=== PATIENT | female | born 1990 | race Caucasian/White ===

== ENCOUNTER 2017-01-30 16:11 | Emergency (ER) | payer OTHER ==
[2017-01-30 16:23] VITALS: BP 165/81; PULSE 105; RESP 20; TEMP 98.9
[2017-01-30] MEDS ORDERED: HYDROcodone/APAP 5-325MG 1 EACH TAB PO STA (16:46)
--- NOTE | 2017-01-30 18:26 | ED ---
General Adult HPI - General Chief complaint: Skin/Abscess/Foreign Body Stated complaint: Cyst on Chest Source: patient, family, RN notes reviewed Mode of arrival: ambulatory Limitations: no limitations - History of Present Illness Initial comments: Chief complaint history of present illness a 18-year-old female here with a painful abscess. She been on Keflex for 2 days and Motrin for pain. Discomfort is becoming worse. She been using hot compresses without any improvement. - Related Data Home Medications Medication Instructions Recorded Confirmed Cephalexin [Keflex] 500 mg PO QID 01/30/17 01/30/17 Ibuprofen [Motrin] 600 mg PO TID PRN 01/30/17 01/30/17 Losartan [Cozaar] 50 mg PO DAILY 01/30/17 01/30/17 Marlissa-28 1 tab PO HS 01/30/17 01/30/17 Previous Rx's Medication Instructions Recorded Hydrocodone/Acetaminophen [[place] 1 each PO Q6HR PRN #30 tab 01/30/17 5-325] Allergies Allergy/AdvReac Type Severity Reaction Status Date / Time No Known Allergies Allergy Verified 01/30/17 16:52 Review of Systems ROS Statement: Those systems with pertinent positive or pertinent negative responses have been documented in the HPI. Review of systems all normal except for the painful abscess just to the right of midline just below the breast. All systems reviewed. Past medical problems no significant past medical problems history of surgeries none. Family history noncontributory. No known ALLERGIES. Nonsmoker nondrinker. ROS Other: All systems not noted in ROS Statement are negative. Past Medical History Past Medical History: No Reported History History of Any Multi-Drug Resistant Organisms: None Reported Past Surgical History: No Surgical Hx Reported Past Anesthesia/Blood Transfusion Reactions: No Reported Reaction Past Psychological History: No Psychological Hx Reported Smoking Status: Never smoker Past Alcohol Use History: None Reported Past Drug Use History: None Reported General Exam - General Exam Comments Initial Comments: General: The patient is awake and alert, complains of what appears to be an infected sebaceous cyst anterior chest wall just medial to the midline near the right breast. Vital signs temperature 90.9 pulse 105 respiratory rate 20 pulse ox 90 % room air blood pressure Respiratory: No respiratory distress no palpitations. Examination finds an area of erythema and induration. With a fluctuant center. Abscess to be drained. Patient reports she's had a pea-sized anterior there for many years. Limitations: no limitations Course Vital Signs 01/30/17 16:20 Temperature 98.9 F Pulse Rate 105 H Respiratory 20 Rate Blood Pressure 165/81 O2 Sat by Pulse 98 Oximetry Procedures - Procedures Initial comment: Using show technique the area over the abscess was cleaned well Betadine and alcohol. Eye was then anesthetized with 5 mL of lidocaine. The abscess was then entered with an 18-gauge needle 5 mL of pus was removed. Using a #11 blade stellate incision was made approximately 4 more cc of murky purulent material removed. This was then packed with 1/2 inch iodoform gauze 6 inches probably bandage applied on top. Dr. Pickard Medical Decision Making - Medical Decision Making Medical decision-making. Incision and drainage with culture will be obtained and performed. Patient will continue on her medications. Disposition Clinical Impression: Infected sebaceous cyst Disposition: HOME SELF-CARE Condition: Stable Instructions: Abscess Incision and Drainage (ED), Cyst (ED) Additional Instructions: Remove packing in 24 hours. Wash well and shower twice daily. Taking continue antibiotics as prescribed. Call for culture results in 3 days. Follow-up with family physician return emergency room as needed Prescriptions: Hydrocodone/Acetaminophen [[place] 5-325] 1 each PO Q6HR PRN #30 tab PRN Reason: Pain Referrals: Charlie De Santiago DO [Primary Care Provider] - 1-2 days Time of Disposition: 18:26
== END 2017-01-30 18:47 | disposition home or self-care (01) ==
LOC: EC 16:11
DX: L72.3 Sebaceous cyst (principal); H44.009 Unspecified purulent endophthalmitis, unspecified eye; Z79.3 Long term (current) use of hormonal contraceptives; Z79.899 Other long term (current) drug therapy
CPT/HCPCS: 10060; 10160; 87070; 87205; 99283

== ENCOUNTER → 2018-03-02 | Outpatient (CLI) | payer BC ==
[2018-03-02 12:14] LABS: Basophils # (A) 0.1 k/uL (0-0.2); Basophils % (A) 1 %; Eosinophils # (A) 0.4 k/uL (0-0.7); Eosinophils % (A) 4 %; HCT 43.4 % (34.0-46.0); HGB 14.4 gm/dL (11.4-16.0); Lymphocytes # (A) 2.6 k/uL (1.0-4.8); Lymphocytes % (A) 27 %; MCH 28.9 pg (25.0-35.0); MCHC 33.2 g/dL (31.0-37.0); MCV 87.2 fL (80.0-100.0); Mean Platelet Volume 6.7; Monocytes # (A) 0.4 k/uL (0-1.0); Monocytes % (A) 5 %; Neutrophils # (A) 6.1 k/uL (1.3-7.7); Neutrophils % (A) 62 %; Platelet Count 332 k/uL (150-450); RBC 4.98 m/uL (3.80-5.40); RDW 12.6 % (11.5-15.5); WBC 9.7 k/uL (3.8-10.6)
[2018-03-02 12:27] LABS: ALT 32 U/L (9-52); AST 25 U/L (14-36); Albumin 4.4 g/dL (3.5-5.0); Alkaline Phosphatase 54 U/L (38-126); Anion Gap 10 mmol/L; Blood Urea Nitrogen 11 mg/dL (7-17); Calcium 9.9 mg/dL (8.4-10.2); Carbon Dioxide 24 mmol/L (22-30); Chloride 106 mmol/L (98-107); Glucose 98 mg/dL (74-99); Potassium 4.8 mmol/L (3.5-5.1); Sodium 140 mmol/L (137-145); Total Bilirubin 0.3 mg/dL (0.2-1.3); Total Protein 7.5 g/dL (6.3-8.2)
[2018-03-02 16:35] LABS: Thyroid Peroxidase Antibodies 39.1 U/mL (0.0-60.0)
[2018-03-02 17:07] LABS: Hepatitis A Antibody IgM Non-Reactive (Non-Reactive); Hepatitis B Core IgM Non-Reactive (Non-Reactive)
== END | disposition home or self-care (01) ==
LOC: LABWHC1 11:42
PROVIDERS: ATTEND Family Medicine
DX: Z00.00 Encounter for general adult medical examination without abnormal findings (principal); I10 Essential (primary) hypertension
CPT/HCPCS: 36415; 80053; 80074; 82533; 84146; 84439; 84443; 84481; 85025; 86038; 86376

== ENCOUNTER → 2018-04-01 | Outpatient (CLI) | payer BC ==
[2018-04-01 12:14] LABS: Cholesterol 172 mg/dL (<200); HDL Cholesterol 55 mg/dL (40-60); LDL Cholesterol,Calculated 88 mg/dL (0-99); Triglycerides 146 mg/dL (<150)
== END | disposition home or self-care (01) ==
LOC: LABWHC1 11:01
PROVIDERS: ATTEND Family Medicine
DX: I10 Essential (primary) hypertension (principal)
CPT/HCPCS: 36415; 80061

== ENCOUNTER → 2018-07-20 | Outpatient (CLI) | payer BC ==
--- NOTE | 2018-07-20 18:20 | CONS ---
CONSULTATION DATE OF SERVICE: 07/20/2018 28-year-old lady has been evaluated in the sleep center for possible obstructive sleep apnea-hypopnea syndrome. HISTORY OF PRESENT ILLNESS/SLEEP-WAKE EVALUATION: Patient usual sleep schedule on working days from 11 p.m. until 5 - 6 am and on weekends from 12 to 1 a.m. until 7 or 8 a.m. Sometimes she has problem with falling asleep, has TV set in bedroom. She prefers to sleep on the stomach position. She snores and wakes up from sleep around 3 times with up to 2 episodes of nocturia. In the morning, she wakes up tired, has difficulties to pay attention, falling asleep during the day, has problems with memory, concentration, debility, depression. [place] Sleepiness Scale is significantly increased to 13. Patient may take several naps during the day. PAST MEDICAL HISTORY: Positive for hypertension. CURRENT MEDICATIONS: Amlodipine and control pills. SOCIAL HISTORY: Negative for smoking or using alcohol. FAMILY HISTORY: Positive for hypertension, heart problems, arthritis, asthma, sleep apnea, snoring, cancer, diabetes. REVIEW OF SYSTEMS: Awakenings from sleep, sleepiness during the day, snoring, episodes of changes of mood and memory problems. PHYSICAL EXAM: lady without distress, BP 148/107, HR 109, RR 16, height 5 feet 4 inches, weight 240 pounds. Body mass index 41. Oxygen saturation at room air 99%. Oropharynx extremely low position of soft palate. Mallampati 4. Wide neck is 17 inches in circumference. Abdomen slightly obese. Neck Supple, no JVD. Thyroid is not palpable. LUNGS Clear to percussion and to auscultation. Good air exchange. No wheezing or rhonchi. HEART S1, S2 regular. No murmurs, gallops, or rubs. ABDOMEN: Slightly obese. Soft and nontender. Bowel sounds are present. No organomegaly appreciated. EXTREMITIES No clubbing or cyanosis. PROGRAM COORDINATOR EXECUTIVE EDUCATION Awake, alert, and oriented X3. Cranial nerves 2 to 7 intact. There is no fasciculation or atrophy. noted. No focal deficits observed. IMPRESSION: 1. Snoring, multiple awakenings from sleep, extremely low position of soft palate, wide neck, excessive daytime sleepiness, obstructive sleep apnea-hypopnea syndrome. 2. Obesity, body mass index 41. 3. Hypertension. 4. Significant excessive daytime sleepiness. [place] Sleepiness Scale increased to 13. Differential diagnosis should include hypersomnia. PLAN: 1. Polysomnography for evaluation of patient's breathing during sleep. 2. CPAP/BiPAP titration if sleep study confirms obstructive sleep apnea-hypopnea syndrome. 3. Preferable position during sleep on the side. 4. No driving if patient feels any sleepiness. 5. I will see patient for follow up visit to explain results of testing and following plan. 6. Multiple sleep latency test if the sleep study will be negative for obstructive sleep apnea-hypopnea syndrome. Thank you very much for allowing me to participate in management of your patient. Sincerely, Alvino Senior MD, PhD, FAASM Diplomat of [place] [employer] [place] [employer] [facility] [place] MMODL / TUN: [id number] /
== END ==
LOC: SLEEP 15:18
PROVIDERS: ATTEND Internal Medicine
DX: G47.33 Obstructive sleep apnea (adult) (pediatric) (principal); E66.9 Obesity, unspecified; I10 Essential (primary) hypertension; Z68.41 Body mass index [BMI] 40.0-44.9, adult; Z99.89 Dependence on other enabling machines and devices
CPT/HCPCS: 99211

== ENCOUNTER → 2018-08-03 | Outpatient (CLI) | payer BC ==
[2018-08-03 16:44] LABS: T4, Free (Free Thyroxine) 1.2 ng/dL (0.80-1.80)
[2018-08-03 17:53] LABS: DHEA Sulfate 132.5 ug/dL (26.0-430.0)
[2018-08-03 17:56] LABS: Thyroid Peroxidase Antibodies <28.0 U/mL (0.0-60.0)
== END | disposition home or self-care (01) ==
LOC: LABWHC1 10:34
PROVIDERS: ATTEND Internal Medicine Endocrinology, Diabetes & Metabolism
DX: L65.9 Nonscarring hair loss, unspecified (principal)
CPT/HCPCS: 36415; 82024; 82533; 82627; 83498; 84146; 84403; 84439; 84443; 84480; 86376

== ENCOUNTER 2018-09-15 18:21 | Emergency (ER) | payer BC ==
[2018-09-15 18:26] VITALS: RESP 18
--- NOTE | 2018-09-15 19:06 | XR ---
PROCEDURE: XR foot complete LT - 3V DATE AND TIME: 09/15/2018 6:47 PM CLINICAL INDICATION: PHH; Pain TECHNIQUE: Department protocol COMPARISON: None FINDINGS: There is no fracture or malalignment. The soft tissues are unremarkable. IMPRESSION: NO ACUTE PROCESS.
--- NOTE | 2018-09-15 19:57 | ED ---
General Adult HPI - General Chief complaint: Extremity Injury, Lower Stated complaint: Foot injury Time Seen by Provider: 09/15/18 18:31 Source: patient, RN notes reviewed Mode of arrival: wheelchair Limitations: no limitations - History of Present Illness Initial comments: 28-year-old female percent for left foot pain. Patient dropped a heavy dinner p late on her left foot. Patient states it is very painful to touch and bear weight on. Denies any pain on the plantar aspect of the foot. Denies any other injuries.Patient has no other complaints at this time including shortness of breath, chest pain, abdominal pain, nausea or vomiting, headache, or visual changes. - Related Data Home Medications Medication Instructions Recorded Confirmed Cephalexin [Keflex] 500 mg PO QID 01/30/17 01/30/17 Ibuprofen [Motrin] 600 mg PO TID PRN 01/30/17 01/30/17 Losartan [Cozaar] 50 mg PO DAILY 01/30/17 01/30/17 Marlissa-28 1 tab PO HS 01/30/17 01/30/17 Previous Rx's Medication Instructions Recorded Hydrocodone/Acetaminophen [[place] 1 each PO Q6HR PRN #30 tab 01/30/17 5-325] Allergies Allergy/AdvReac Type Severity Reaction Status Date / Time No Known Allergies Allergy Verified 09/15/18 18:26 Review of Systems ROS Statement: Those systems with pertinent positive or pertinent negative responses have been documented in the HPI. ROS Other: All systems not noted in ROS Statement are negative. Past Medical History Past Medical History: No Reported History History of Any Multi-Drug Resistant Organisms: None Reported Past Surgical History: No Surgical Hx Reported Past Anesthesia/Blood Transfusion Reactions: No Reported Reaction Past Psychological History: No Psychological Hx Reported Smoking Status: Never smoker Past Alcohol Use History: None Reported Past Drug Use History: None Reported General Exam Limitations: no limitations General appearance: alert, in no apparent distress Head exam: Present: atraumatic, normocephalic, normal inspection Eye exam: Present: normal appearance, PERRL, EOMI. Absent: scleral icterus, conjunctival injection, periorbital swelling ENT exam: Present: normal exam, mucous membranes moist Neck exam: Present: normal inspection, full ROM. Absent: tenderness, meningismus, lymphadenopathy Respiratory exam: Present: normal lung sounds bilaterally. Absent: respiratory distress, wheezes, rales, rhonchi, stridor Cardiovascular Exam: Present: regular rate, normal rhythm, normal heart sounds. Absent: systolic murmur, diastolic murmur, rubs, gallop, clicks Extremities exam: Present: full ROM (Full range of motion of the ankle as well as digits of the left foot), tenderness (Tenderness noted over the dorsal aspect of the left foot, generalized in nature), normal capillary refill (Capillary refill less than 2 seconds, DP pulse 2+ and left lower extremity), joint swelling (Patient does have minimal localized edema noted to the left dorsal foot. No contusions or ecchymosis noted), other (Sensation intact in the left lower extremity). Absent: pedal edema, calf tenderness Course Vital Signs 09/15/18 18:23 Temperature 98.7 F Pulse Rate 124 H Respiratory 18 Rate Blood Pressure 169/107 O2 Sat by Pulse 100 Oximetry Medical Decision Making - Medical Decision Making 28-year-old female for left foot pain after dropping a dinner plate. No lacerations noted. Tenderness generalized over the dorsal left foot. Neurovascular status intact. X-ray is negative for fractures. Patient has crutches with her. Patient will follow up with primary care in 1-2 days and return here she has any worsening symptoms. I did discuss possibility of the need for repeat fractures in 7-10 days if symptoms do not resolve. Disposition Clinical Impression: Contusion of left foot Disposition: HOME SELF-CARE Condition: Good Instructions (If sedation given, give patient instructions): Foot Contusion (ED) Additional Instructions: Please take Motrin and Tylenol for pain. Use Jeb wrap. Rest ice and elevate the foot. Use crutches as needed. Follow-up with primary care if you have any worsening symptoms. Is patient prescribed a controlled substance at d/c from ED?: No Referrals: Carl Samson MD [Primary Care Provider] - 1-2 days Time of Disposition: 19:54
[2018-09-15 20:18] VITALS: BP 175/86; PULSE 97; TEMP 97.2
== END 2018-09-15 20:18 | disposition home or self-care (01) ==
LOC: EC 18:21
DX: S90.32XA Contusion of left foot, initial encounter (principal); W20.8XXA Other cause of strike by thrown, projected or falling object, initial encounter; Y92.009 Unspecified place in unspecified non-institutional (private) residence as the place of occurrence of the external cause; Z79.3 Long term (current) use of hormonal contraceptives; Z79.899 Other long term (current) drug therapy
CPT/HCPCS: 99283

== ENCOUNTER → 2018-10-27 | Outpatient (CLI) | payer BC ==
--- NOTE | 2018-10-27 17:25 | PN ---
PROGRESS NOTE DATE OF SERVICE: 10/27/2018 This 28-year-old lady has been followed in Sleep Center for treatment of obstructive sleep apnea-hypopnea syndrome. Recently the patient had a polysomnogram which showed severe sleep apnea, and subsequently she had CPAP titration. During titration her respiration was normalized, and then I her CPAP equipment and today is her first visit after she was started on treatment with CPAP. Patient was able to use CPAP equipment every night. She feels better while she is using CPAP equipment. She is sleeping better and she feels better during the day. I checked her CPAP unit. CPAP pressure is 10 cm of water. Usage is /30 nights and 22/30 nights for more than 4 hours; average 5.3 hours per night, which is normal compliance. Leak is only 2 L/minute, which is great. Apnea-hypopnea index was 0.4, which is absolutely perfect. [place] Sleepiness Scale today is 3. MEDICATIONS: 1. Atenolol. 2. Levora. 3. Amlodipine. 4. Norvasc. PHYSICAL EXAMINATION: GENERAL: A pleasant patient in no distress. VITAL SIGNS: BP 149/90, HR 108, RR 18, weight 242, temperature 99.4, oxygen saturation at room air 98%. HEENT: PERRLA, EOMI. Evaluation of oropharynx showed tongue protrudes midline. Extremely low position of soft palate. Mallampati IV. NECK: Supple. No JVD. Thyroid is not palpable. LUNGS: Clear to percussion and to auscultation. Good air exchange. No wheezing or rhonchi. HEART: S1, S2 regular. No murmurs, gallops or rubs. ABDOMEN: Slightly obese. EXTREMITIES: No clubbing or cyanosis. COBOL APPLICATION DEVELOPER: Awake, alert, and oriented X3. Cranial nerves 2 to 7 intact. There is no fasciculation or atrophy. noted. No focal deficits observed. IMPRESSION: 1. Severe obstructive sleep apnea-hypopnea syndrome; apnea-hypopnea index 42.6 with oxygen desaturation to 67%, under full control with CPAP with a pressure of 10 cm of water. Patient demonstrated great compliance with treatment, benefitting from treatment. 2. Obesity. 3. Hypertension. 4. No periodic limb movements were documented during the sleep study. PLAN: 1. Patient will continue to use CPAP equipment every night for the whole night. 2. She will change position of her CPAP unit lower compared to the position of her head. 3. Patient may adjust the level of heating and humidifier and temperature in the tube according to her preferences. 4. Losing weight. 5. No driving if feeling any sleepiness. 6. Will maintain all necessary prescriptions for CPAP, including nasal mask. At present the patient is using AirFit N20 medium size, heated tube, filters. Thank you very much for allowing me to participate in the management of your patient. MMODL / IJN: [id number] /
== END ==
LOC: SLEEP 15:46
PROVIDERS: ATTEND Internal Medicine
DX: G47.33 Obstructive sleep apnea (adult) (pediatric) (principal); E66.9 Obesity, unspecified; I10 Essential (primary) hypertension; G47.61 Periodic limb movement disorder; Z79.899 Other long term (current) drug therapy; Z99.89 Dependence on other enabling machines and devices

== ENCOUNTER 2018-12-10 23:23 | Observation (INO) | payer BC ==
[2018-12-10] MEDS ORDERED: SODIUM CHLORIDE 0.9% 1,000 ML IV STA (23:39)
[2018-12-10] MEDS ORDERED: ASPIRIN 81 MG PO STA (23:39)
[2018-12-11 00:11] LABS: Basophils # (A) 0.1 k/uL (0-0.2); Basophils % (A) 0 %; Eosinophils # (A) 0.5 k/uL (0-0.7); Eosinophils % (A) 4 %; HCT 38.9 % (34.0-46.0); HGB 12.8 gm/dL (11.4-16.0); Lymphocytes # (A) 2.8 k/uL (1.0-4.8); Lymphocytes % (A) 23 %; MCH 28.5 pg (25.0-35.0); MCHC 32.8 g/dL (31.0-37.0); MCV 86.9 fL (80.0-100.0); Mean Platelet Volume 6.7; Monocytes # (A) 0.4 k/uL (0-1.0); Monocytes % (A) 3 %; Neutrophils % (A) 67 %; Platelet Count 313 k/uL (150-450); RBC 4.48 m/uL (3.80-5.40); RDW 12.7 % (11.5-15.5); WBC 11.9 k/uL (3.8-10.6)
[2018-12-11 00:23] LABS: ALT 30 U/L (9-52); AST 32 U/L (14-36); African American GFR (CKD) >90 (>60 ml/min/1.73 sqM); Albumin 4.4 g/dL (3.5-5.0); Alkaline Phosphatase 58 U/L (38-126); Anion Gap 14 mmol/L; Blood Urea Nitrogen 11 mg/dL (7-17); Calcium 9.8 mg/dL (8.4-10.2); Carbon Dioxide 22 mmol/L (22-30); Chloride 105 mmol/L (98-107); Glucose 110 mg/dL (74-99); Magnesium 1.9 mg/dL (1.6-2.3); Potassium 3.8 mmol/L (3.5-5.1); Sodium 141 mmol/L (137-145); Total Bilirubin 0.3 mg/dL (0.2-1.3); Total Protein 7.3 g/dL (6.3-8.2)
--- NOTE | 2018-12-11 00:27 | XR ---
EXAM: XR Chest, 2 Views CLINICAL HISTORY: Chest Pain TECHNIQUE: Frontal and lateral views of the chest. COMPARISON: No relevant prior studies available. FINDINGS: Lungs: Unremarkable. No consolidation. Pleural space: Unremarkable. No pneumothorax. Heart: Unremarkable. No cardiomegaly. Mediastinum: Unremarkable. Bones/joints: No acute osseous abnormality. Tubes, lines and devices: Telemetry leads overlie the patient. Upper abdomen: Elevated right hemidiaphragm. IMPRESSION: No acute cardiopulmonary process.
[2018-12-11 00:33] LABS: D-Dimer 0.52 mg/L FEU (<0.60); INR 0.9 (<1.2); Partial Thromboplastin Time 22.2 sec (22.0-30.0); Prothrombin Time 9.6 sec (9.0-12.0)
[2018-12-11 00:49] LABS: Appearance,Urine Clear (Clear); Bilirubin,Urine Negative (Negative); Blood,Urine Negative (Negative); Color,Urine Light Yellow; Glucose,Urine (UA) Negative (Negative); Ketones,Urine Negative (Negative); Leukocyte Esterase,Urine Negative (Negative); Nitrite,Urine Negative (Negative); Protein,Urine Negative (Negative); Specific Gravity,Urine 1.006 (1.001-1.035); Urobilinogen,Urine <2.0 mg/dL (<2.0)
--- NOTE | 2018-12-11 02:20 | ED ---
General Adult HPI - General Chief complaint: Chest Pain Stated complaint: Chest Pain Time Seen by Provider: 12/10/18 23:39 Source: patient, EMS, RN notes reviewed, old records reviewed Mode of arrival: EMS Limitations: no limitations - History of Present Illness Initial comments: 28-year-old female patient presents to ED with chief complaint of chest pain. Patient reports that has been ongoing for 3 days. She states that the pain is in her left parasternal region radiating to her left arm. Patient reports that she has some minor tingling to her left arm. Denies any shortness of breath. Denies any nausea vomiting or diarrhea. Denies any other complaints at this time. Systemic: Pt denies fatigue, fever/chills, rash. Pt denies weakness, night s weats, weight loss. Neuro: Pt denies headache, visual disturbances, syncope or pre-syncope. HEENT: Pt denies ocular discharge or irritation, otalgia, rhinorrhea, pharyngitis or notable lymphadenopathy. Cardiopulmonary: Pt denies SOB, heart palpitations, dyspnea on exertion. Abdominal/GI: Pt denies abdominal pain, n/v/d. : Pt denies dysuria, burning w/ urination, frequency/urgency. Denies new onset urinary or bowel incontinence. MSK: Pt denies myalgia, loss of strength or function in extremities. Neuro: Pt denies new onset weakness, paresthesias. - Related Data Home Medications Medication Instructions Recorded Confirmed [id number]-[id number] 1 tab PO HS 01/30/17 12/10/18 Atenolol [Tenormin] 25 mg PO BID 12/10/18 12/10/18 amLODIPine [Norvasc] 5 mg PO DAILY 12/10/18 12/10/18 Allergies Allergy/AdvReac Type Severity Reaction Status Date / Time No Known Allergies Allergy Verified 09/15/18 18:26 Review of Systems ROS Statement: Those systems with pertinent positive or pertinent negative responses have been documented in the HPI. ROS Other: All systems not noted in ROS Statement are negative. Past Medical History Past Medical History: Hypertension, Sleep Apnea/CPAP/BIPAP Additional Past Medical History / Comment(s): tachycardia History of Any Multi-Drug Resistant Organisms: None Reported Past Surgical History: No Surgical Hx Reported Past Anesthesia/Blood Transfusion Reactions: No Reported Reaction Past Psychological History: No Psychological Hx Reported Smoking Status: Never smoker Past Alcohol Use History: None Reported Past Drug Use History: None Reported General Exam - General Exam Comments Initial Comments: Constitutional: NAD, AOX3, Pt has pleasant affect. HEENT: NC/AT, trachea midline, neck supple, no lymphadenopathy. Posterior pharynx non erythematous, without exudates. External ears appear normal, without discharge. Mucous membranes moist. Eyes PERRLA, EOM intact. There is no scleral icterus. No pallor noted. Cardiopulmonary: RRR, no murmurs, rubs or gallops, no JVD noted. Lungs CTAB in anterior and posterior becerra. No peripheral edema. Abdominal exam: Abdomen soft and non-distended. Abdomen non-tender to palpation in all 4 quadrants. Bowel sounds active in LLQ. No hepatosplenomegaly. No ecchymosis Neuro: CN II-XII grossly intact. No nuchal rigidity. No raccon eyes, no rodríguez sign, no hemotympanum. No cervical spinal tenderness. MSK: No posterior calf tenderness bilaterally, homans sign negative bilaterally. Posterior tibialis and radial pulse +2 bilaterally. Sensation intact in upper and lower extremities. Full active ROM in upper and lower extremities, 5/5 stregnth. Limitations: no limitations Course Vital Signs 12/10/18 12/11/18 12/11/18 23:35 00:38 01:53 Temperature 98.7 F 98.6 F 98.2 F Pulse Rate 98 101 H 90 Respiratory 18 19 17 Rate Blood Pressure 126/83 134/70 123/84 O2 Sat by Pulse 100 97 97 Oximetry 12/11/18 04:22 Temperature 98.4 F Pulse Rate 87 Respiratory 16 Rate Blood Pressure 116/74 O2 Sat by Pulse 100 Oximetry Medical Decision Making - Medical Decision Making 28-year-old female patient presents to ED with chief complaint of chest pain. Patient reports that has been ongoing for 3 days. She states that the pain is in her left parasternal region radiating to her left arm. Patient reports that she has some minor tingling to her left arm. Denies any shortness of breath. Denies any nausea vomiting or diarrhea. Denies any other complaints at this time. Patient has signs stable, afebrile. Physical exam did not display acute pathology. Laboratory investigations revealed mild leukocytosis of 11.9. Coagulation studies within normal limits. D-dimer 0.53. BNP 70. UA negative. EKG displayed no acute process. Chest x-ray, CTA negative for CT. patient states the pain was vastly improved after nitro by EMS. Pt will be admitted for serial troponins and cardiology consultation. Case discussed with Dr. Prather. - Lab Data Result diagrams: 12/10/18 23:55 12/10/18 23:55 Lab Results 12/10/18 12/10/18 12/10/18 Range/Units 23:55 23:55 23:55 WBC 11.9 H (3.8-10.6) k/uL RBC 4.48 (3.80-5.40) m/uL Hgb 12.8 (11.4-16.0) gm/dL Hct 38.9 (34.0-46.0) % MCV 86.9 (80.0-100.0) fL MCH 28.5 (25.0-35.0) pg MCHC 32.8 (31.0-37.0) g/dL RDW 12.7 (11.5-15.5) % Plt Count 313 (150-450) k/uL Neutrophils % 67 % Lymphocytes % 23 % Monocytes % 3 % Eosinophils % 4 % Basophils % 0 % Neutrophils # 8.0 H (1.3-7.7) k/uL Lymphocytes # 2.8 (1.0-4.8) k/uL Monocytes # 0.4 (0-1.0) k/uL Eosinophils # 0.5 (0-0.7) k/uL Basophils # 0.1 (0-0.2) k/uL PT 9.6 (9.0-12.0) sec INR 0.9 (<1.2) APTT 22.2 (22.0-30.0) sec D-Dimer 0.52 (<0.60) mg/L FEU Sodium 141 (137-145) mmol/L Potassium 3.8 (3.5-5.1) mmol/L Chloride 105 (98-107) mmol/L Carbon Dioxide 22 (22-30) mmol/L Anion Gap 14 mmol/L BUN 11 (7-17) mg/dL Creatinine 0.86 (0.52-1.04) mg/dL Est GFR (CKD-EPI)AfAm >90 (>60 ml/min/1.73 sqM) Est GFR (CKD-EPI)NonAf >90 (>60 ml/min/1.73 sqM) Glucose 110 H (74-99) mg/dL Calcium 9.8 (8.4-10.2) mg/dL Magnesium 1.9 (1.6-2.3) mg/dL Total Bilirubin 0.3 (0.2-1.3) mg/dL AST 32 (14-36) U/L ALT 30 (9-52) U/L Alkaline Phosphatase 58 (38-126) U/L Troponin I (0.000-0.034) ng/mL NT-Pro-B Natriuret Pep pg/mL Total Protein 7.3 (6.3-8.2) g/dL Albumin 4.4 (3.5-5.0) g/dL Urine Color Urine Appearance (Clear) Urine pH (5.0-8.0) Ur Specific Crescent (1.001-1.035) Urine Protein (Negative) Urine Glucose (UA) (Negative) Urine Ketones (Negative) Urine Blood (Negative) Urine Nitrite (Negative) Urine Bilirubin (Negative) Urine Urobilinogen (<2.0) mg/dL Ur Leukocyte Esterase (Negative) Urine HCG, Qual (Not Detectd) 12/10/18 12/10/18 12/11/18 Range/Units 23:55 23:55 00:32 WBC (3.8-10.6) k/uL RBC (3.80-5.40) m/uL Hgb (11.4-16.0) gm/dL Hct (34.0-46.0) % MCV (80.0-100.0) fL MCH (25.0-35.0) pg MCHC (31.0-37.0) g/dL RDW (11.5-15.5) % Plt Count (150-450) k/uL Neutrophils % % Lymphocytes % % Monocytes % % Eosinophils % % Basophils % % Neutrophils # (1.3-7.7) k/uL Lymphocytes # (1.0-4.8) k/uL Monocytes # (0-1.0) k/uL Eosinophils # (0-0.7) k/uL Basophils # (0-0.2) k/uL PT (9.0-12.0) sec INR (<1.2) APTT (22.0-30.0) sec D-Dimer (<0.60) mg/L FEU Sodium (137-145) mmol/L Potassium (3.5-5.1) mmol/L Chloride (98-107) mmol/L Carbon Dioxide (22-30) mmol/L Anion Gap mmol/L BUN (7-17) mg/dL Creatinine (0.52-1.04) mg/dL Est GFR (CKD-EPI)AfAm (>60 ml/min/1.73 sqM) Est GFR (CKD-EPI)NonAf (>60 ml/min/1.73 sqM) Glucose (74-99) mg/dL Calcium (8.4-10.2) mg/dL Magnesium (1.6-2.3) mg/dL Total Bilirubin (0.2-1.3) mg/dL AST (14-36) U/L ALT (9-52) U/L Alkaline Phosphatase (38-126) U/L Troponin I <0.012 (0.000-0.034) ng/mL NT-Pro-B Natriuret Pep 70 pg/mL Total Protein (6.3-8.2) g/dL Albumin (3.5-5.0) g/dL Urine Color Urine Appearance (Clear) Urine pH (5.0-8.0) Ur Specific Crescent (1.001-1.035) Urine Protein (Negative) Urine Glucose (UA) (Negative) Urine Ketones (Negative) Urine Blood (Negative) Urine Nitrite (Negative) Urine Bilirubin (Negative) Urine Urobilinogen (<2.0) mg/dL Ur Leukocyte Esterase (Negative) Urine HCG, Qual Not Detected (Not Detectd) 12/11/18 Range/Units 00:32 WBC (3.8-10.6) k/uL RBC (3.80-5.40) m/uL Hgb (11.4-16.0) gm/dL Hct (34.0-46.0) % MCV (80.0-100.0) fL MCH (25.0-35.0) pg MCHC (31.0-37.0) g/dL RDW (11.5-15.5) % Plt Count (150-450) k/uL Neutrophils % % Lymphocytes % % Monocytes % % Eosinophils % % Basophils % % Neutrophils # (1.3-7.7) k/uL Lymphocytes # (1.0-4.8) k/uL Monocytes # (0-1.0) k/uL Eosinophils # (0-0.7) k/uL Basophils # (0-0.2) k/uL PT (9.0-12.0) sec INR (<1.2) APTT (22.0-30.0) sec D-Dimer (<0.60) mg/L FEU Sodium (137-145) mmol/L Potassium (3.5-5.1) mmol/L Chloride (98-107) mmol/L Carbon Dioxide (22-30) mmol/L Anion Gap mmol/L BUN (7-17) mg/dL Creatinine (0.52-1.04) mg/dL Est GFR (CKD-EPI)AfAm (>60 ml/min/1.73 sqM) Est GFR (CKD-EPI)NonAf (>60 ml/min/1.73 sqM) Glucose (74-99) mg/dL Calcium (8.4-10.2) mg/dL Magnesium (1.6-2.3) mg/dL Total Bilirubin (0.2-1.3) mg/dL AST (14-36) U/L ALT (9-52) U/L Alkaline Phosphatase (38-126) U/L Troponin I (0.000-0.034) ng/mL NT-Pro-B Natriuret Pep pg/mL Total Protein (6.3-8.2) g/dL Albumin (3.5-5.0) g/dL Urine Color Light Yellow Urine Appearance Clear (Clear) Urine pH 6.0 (5.0-8.0) Ur Specific Crescent 1.006 (1.001-1.035) Urine Protein Negative (Negative) Urine Glucose (UA) Negative (Negative) Urine Ketones Negative (Negative) Urine Blood Negative (Negative) Urine Nitrite Negative (Negative) Urine Bilirubin Negative (Negative) Urine Urobilinogen <2.0 (<2.0) mg/dL Ur Leukocyte Esterase Negative (Negative) Urine HCG, Qual (Not Detectd) - EKG Data -: EKG Interpreted by Me (and Dr. Prather) EKG Comments: Ventricular rate 105, NH interval 166, QRS 74, QT/QTC 348/459. Sinus tachycardia, otherwise normal EKG. Disposition Clinical Impression: Chest pain Disposition: ADMITTED IP TO THIS HOSP Condition: Fair Instructions (If sedation given, give patient instructions): Chest Pain (ED) Is patient prescribed a controlled substance at d/c from ED?: No Referrals: Carl Samson MD [Primary Care Provider] - 1-2 days
--- NOTE | 2018-12-11 03:42 | CT ---
EXAM: CT Angiography Chest With Intravenous Contrast CLINICAL HISTORY: Pain TECHNIQUE: Axial computed tomographic angiography images of the chest with intravenous contrast using pulmonary embolism protocol. CTDI is 0.242, 0. 242, 3.9, 3.9 x 2, 20.1 mGy and DLP is 8-6.2 mGy-cm. This CT exam was performed using one or more of the following dose reduction techniques: automated exposure control, adjustment of the mA and/or kV according to patient size, and/or use of iterative reconstruction technique. MIP reconstructed images were created and reviewed. COMPARISON: No relevant prior studies available. FINDINGS: Pulmonary arteries: No pulmonary embolus. Aorta: No acute findings. No thoracic aortic aneurysm. Lungs: Mild bilateral peribronchial thickening. No consolidation or suspicious pulmonary nodule. Pleural space: Unremarkable. No significant effusion. No pneumothorax. Heart: Unremarkable. No cardiomegaly. No significant pericardial effusion. Bones/joints: No acute fracture. Soft tissues: Unremarkable. Lymph nodes: Unremarkable. No enlarged lymph nodes. IMPRESSION: No pulmonary embolus.
[2018-12-11] MEDS ORDERED: NITROGLYCERIN OINT 1 INCH/GM PACKET TOPICAL STA (04:47)
[2018-12-11] MEDS ORDERED: NITROGLYCERIN SL TABS 0.4 MG TAB SUBLINGUAL PRN (04:51)
[2018-12-11 07:19] VITALS: RESP 18
[2018-12-11 11:46] VITALS: BP 123/69; PULSE 94; TEMP 98
[2018-12-11 12:35] LABS: T4, Free (Free Thyroxine) 1.08 ng/dL (0.78-2.19)
[2018-12-11] MEDS ORDERED: amLODIPine 5 MG TAB PO SCH (13:00)
[2018-12-11] MEDS ORDERED: ATENOLOL 25 MG TAB PO SCH (13:00)
--- NOTE | 2018-12-11 13:33 | HP ---
HISTORY AND PHYSICAL CHIEF COMPLAINT: A 28-year-old white female admitted to the hospital for atypical chest pain. Nitroglycerin helped her pain. Awaiting cardiology consultation. She had some mild tingling in her left arm. Denies shortness of breath. Nausea, vomiting, or diarrhea ongoing for 3 days. Denies fatigue, fever, chills, weakness, night sweats or weight loss. She denies heart palpitations, shortness of breath. Denies abdominal pain. No nausea, vomiting. Denies frequency, urgency, hesitancy. HOME MEDICATIONS: Include control pill, Tenormin 25 b.i.d. and Norvasc 5 mg daily. ALLERGIES: Negative. REVIEW OF SYSTEMS: Fourteen point review of systems negative except for mentioned above. PAST MEDICAL HISTORY: Hypertension, sleep apnea. PHYSICAL EXAMINATION: VITAL SIGNS: Stable. Afebrile. Cardiovascular S1, S2. LUNGS: Clear. GI soft. HEMATOLOGY: Negative Homans. PSYCH: Fair mood and affect. NEUROLOGIC/VASCULAR: Normal dorsalis posterior, tibial, radial pulse. OPHTHALMOLOGIC: Pupils equal, round, reactive. ENT, no significant adenopathy. Temp 98.2, heart rate is 90 to 101, blood pressure 120s over 70s to 80s, 100% to 97% on room air. CT scan of the chest negative for PE. ASSESSMENT: 1. Atypical chest pain. 2. Rule out myocardial infarction. 3. Rule out esophageal spasm. 4. History of hypertension. Wait for Cardiology consult, recurrent troponins. MMODL / IJN: [id number] /
--- NOTE | 2018-12-11 13:53 | P.CRDCN ---
History of Present Illness Consult date: 12/11/18 Reason for Consult (text): Chest pain Chief complaint: Chest pain History of present illness: HISTORY OF PRESENT ILLNESS AND PLAN: This is a [28]-year-old [female] with history of hypertension, sleep apnea with CPAP use and obesity. Patient presents in the emergency department with complaints of [chest pain 3 days. Chest pain described as sharp/dull midsternal pain and left arm numbness that occurred off and on over the past 3 days. She states most recent episode was at work where she became diaphoretic and she called EMS. Patient continues to have midsternal pain. Patient has no current complaints of shortness of breath, nausea or diaphoresis. Pt states she was moving furniture at her house a few days ago. Patient is a never smoker. Patient does not follow with cardiology]. SIGNIFICANT PAST MEDICAL HISTORY: [hypertension, sleep apnea with CPAP use and obesity] PAST SURGICAL HISTORY: See list. EKG shows [sinus tach], heart rate [105] bpm. Troponins negative x [2]. SIGNIFICANT LABORATORY VALUES: [WBC, 11.9. CBC WNL. BMP WNL. U/A WNL.]. Chest x-ray [negative for acute process]. CT of chest [negative for PE]. REVIEW OF SYSTEMS: CONSTITUTIONAL: EYES: Denies blurred vision. [Denies blurred vision or vision changes. Denies eye pain.] EARS, NOSE, MOUTH & THROAT: [Denies headache. Denies sore throat. Denies ear pain Denies hemoptysis.] CARDIOVASCULAR: [Complains of current chest pain, midsternal and sharp/dull in nature. Denies shortness of breath. Denies orthopnea. Denies PND. Denies palpitations.] RESPIRATORY: [Denies cough. Denies shortness of breath. ] GASTROINTESTINAL: [Denies abdominal pain or distention. Denies diarrhea. Denies constipation. Denies nausea. Denies vomiting.] MUSCULOSKELETAL: [Complains of myalgias.] INTEGUMENTARY: [Denies pruitis. Denies rash.] ENDOCRINE: [Denies fatigue. Denies weight change. Denies polydipsia. Denies polyurina Denies heat/cold intolerance. Complains of diaphoresis.] GENITOURINARY:[ Denies burning, hematuria or urgency with micturation.] HEMATOLOGIC: [Denies history of anemia. Denies bleeding.] NEUROLOGIC: [Left arm numbness/tingling. Denies weakness.] PSYCHIATRIC: [Denies anxiety. Denies depression.] PHYSICAL EXAM: VITAL SIGNS: WNL GENERAL: Well developed, in no acute distress. HEENT: Head is atraumatic, normocephalic. Pupils are equal, round. Extra ocular movements intact. Mucous membranes moist. Neck supple. No JVD. No carotid bruit. No thyromegaly. LUNGS: Clear to auscultation no wheezes, rales or rhonchi. No chest wall tenderness on palpation or with deep breathing. HEART: Regular rate and rhythm, no rubs or gallops. S1 and S2 heard. No murmur. ABDOMEN: Abdominal exam, WNL. Bowel sounds x4 quads. Soft, non-tender, without masses, organomegaly, or abdominal aorta enlargement. Obese. EXTREMITIES/VASCULAR: Extremities have easily palpable radial, femoral, dorsalis pedis and posterior tibial pulses. No cyanosis, calf tenderness. No BLE edema. NEUROLOGIC: Patient is awake, alert and oriented x3. No focal neurologic abnormalities. FINAL IMPRESSION: 1. [ Atypical Chest pain]. 2. [ Hypertension]. 3. [ Sleep apnea with CPAP use]. 4. [ Obesity]. 5. [ Elevated white cell count]. PLAN: [Atypical chest pain. Patient to echocardiogram and stress test on an out patient basis. Check TSH, free T4. Continue same all other medical/medication regime. Continue home meds. Cardiac diet. OK for DC from a cardiology per spective. Thank you kindly for this consult.] Nurse Practitioner note has been reviewed by the Physician. Signing provider agrees with the documented findings, assessment and plan of care. Past Medical History Past Medical History: Hypertension, Sleep Apnea/CPAP/BIPAP Additional Past Medical History / Comment(s): tachycardia History of Any Multi-Drug Resistant Organisms: None Reported Past Surgical History: No Surgical Hx Reported Past Anesthesia/Blood Transfusion Reactions: No Reported Reaction Past Psychological History: No Psychological Hx Reported Smoking Status: Never smoker Past Alcohol Use History: None Reported Past Drug Use History: None Reported - Past Family History Father Family Medical History: Diabetes Mellitus, Hypertension Mother Family Medical History: No Reported History Medications and Allergies Home Medications Medication Instructions Recorded Confirmed Type Marlissa-[id number] 1 tab PO HS 01/30/17 12/11/18 History Atenolol [Tenormin] 25 mg PO BID 12/10/18 12/11/18 History amLODIPine [Norvasc] 5 mg PO DAILY 12/10/18 12/11/18 History Allergies Allergy/AdvReac Type Severity Reaction Status Date / Time No Known Allergies Allergy Verified 12/11/18 08:11 Physical Exam Vitals: Vital Signs Temp Pulse Pulse Resp BP BP Pulse Ox 12/11/18 07:00 97.5 F L 89 88 18 107/76 128/77 98 12/11/18 04:22 98.4 F 87 16 116/74 100 12/11/18 01:53 98.2 F 90 17 123/84 97 12/11/18 00:38 98.6 F 101 H 19 134/70 97 12/10/18 23:35 98.7 F 98 18 126/83 100 Intake and Output 12/10/18 12/11/18 12/11/18 22:59 06:59 14:59 Other: Weight 108.862 kg Results 12/10/18 23:55 12/10/18 23:55 Cardiac Enzymes 12/10/18 12/10/18 12/11/18 Range/Units 23:55 23:55 05:10 AST 32 (14-36) U/L Troponin I <0.012 <0.012 (0.000-0.034) ng/mL Coagulation 12/10/18 Range/Units 23:55 PT 9.6 (9.0-12.0) sec APTT 22.2 (22.0-30.0) sec CBC 12/10/18 Range/Units 23:55 WBC 11.9 H (3.8-10.6) k/uL RBC 4.48 (3.80-5.40) m/uL Hgb 12.8 (11.4-16.0) gm/dL Hct 38.9 (34.0-46.0) % Plt Count 313 (150-450) k/uL Comprehensive Metabolic Panel 12/10/18 Range/Units 23:55 Sodium 141 (137-145) mmol/L Potassium 3.8 (3.5-5.1) mmol/L Chloride 105 (98-107) mmol/L Carbon Dioxide 22 (22-30) mmol/L BUN 11 (7-17) mg/dL Creatinine 0.86 (0.52-1.04) mg/dL Glucose 110 H (74-99) mg/dL Calcium 9.8 (8.4-10.2) mg/dL AST 32 (14-36) U/L ALT 30 (9-52) U/L Alkaline Phosphatase 58 (38-126) U/L Total Protein 7.3 (6.3-8.2) g/dL Albumin 4.4 (3.5-5.0) g/dL Current Medications Generic Name Dose Route Start Last Admin Trade Name Freq PRN Reason Stop Dose Admin Aspirin 325 mg 12/12/18 09:00 Aspirin PO DAILY GERRY Nitroglycerin 0.4 mg 12/11/18 04:51 Nitrostat SUBLINGUAL Q5M PRN Chest Pain Intake and Output 12/10/18 12/11/18 12/11/18 22:59 06:59 14:59 Other: Weight 108.862 kg 12/10/18 23:55 12/10/18 23:55 - EKG Interpretation EKG: sinus rhythm, normal ST/T
[2018-12-12] MEDS ORDERED: LEVOTHYROXINE 100 MCG TAB PO SCH (06:30)
[2018-12-12] MEDS ORDERED: ASPIRIN 325 MG TAB PO SCH (09:00)
--- NOTE | 2018-12-19 00:11 | DS ---
DISCHARGE SUMMARY ADMISSION DATE: 12/11/2018 DISCHARGE DATE: 12/11/2018. HOME MEDICINES: 1. 1 tab daily. 2. Norvasc 5 mg daily. 3. Tenormin 25 b.i.d. 4. Aspirin a 325 mg daily. 5. Synthroid 100 mcg daily. The patient was admitted with atypical chest pain. Cardiology was consulted. Myocardial infarction was ruled out. She also has a history of hypertension, sleep apnea on CPAP, and obesity. Chest x-ray is negative. CT of the chest negative for PE. Troponins are negative x3. She was diagnosed with atypical chest pain, hypertension, sleep apnea, obesity, possibly hypertension acceleration and elevated white count. Treatment was given for the above orders. Blood pressure medicines was stabilized. She will be followed up with the echo and stress test as an outpatient. The thyroid tests were still a bit abnormal and her thyroid medicine was increased and she was discharged home in stable condition. Follow up as an outpatient with Dr. Samson and Cardiology. VENTURAL / TUN: [id number] /
== END 2018-12-11 14:52 | disposition home or self-care (01) ==
LOC: EC 23:23 → 1SOBS 12-11 06:40
PROVIDERS: ADMIT Family Medicine; ATTEND Family Medicine
DX: R07.89 Other chest pain (principal); I10 Essential (primary) hypertension; G47.30 Sleep apnea, unspecified; R20.2 Paresthesia of skin; Z99.89 Dependence on other enabling machines and devices; D72.829 Elevated white blood cell count, unspecified; E66.9 Obesity, unspecified; Z68.41 Body mass index [BMI] 40.0-44.9, adult; Z79.899 Other long term (current) drug therapy; Z83.3 Family history of diabetes mellitus; Z82.49 Family history of ischemic heart disease and other diseases of the circulatory system; Z79.3 Long term (current) use of hormonal contraceptives
CPT/HCPCS: 96360; 99285; 36415; 93005; 85379; 84439; 83880; 80053; 84443; 83735; 84484; 85025; 85610; 85730; 81003; 81025; 71046; 71275; G0378; Q9967

== ENCOUNTER → 2018-12-20 | Outpatient (CLI) | payer BC ==
--- NOTE | 2018-12-20 12:00 | P.STRESS ---
- Stress Test Note Stress Test Results/Findings: Exam Performed: stress test Exam Date: 12/20/18 Reason for Exam: CHEST PAIN Height: 5 ft 3 in Weight: 108.862 kg Protocol: SYED Stage: 3 Duration of Exercise: 8:00 Resting Heart Rate: 99 Resting Blood Pressure: 149/77 Maximum Achieved Heart Rate: 167 Maximum Achieved Blood Pressure: 204/54 85% PMHR: 162 100% PMHR: 190 METS: 9.7 Technologist Comment: Stress Test Results/Findings: This is a 28-year-old female with history of hypertension being evaluated for symptoms of chest pain. Stress data: Baseline EKG showed sinus rhythm with normal MT interval, QRS duration. Blood pressure at rest is 149/77 with pulse rate of 99. Patient walked on the Syed protocol for 8 minutes achieving a maximal heart rate of 167 with blood pressure 204/54. EKGs taken during and after x-ray did not reveal any changes of ischemia. Patient did not experience any chest pain. No arrhythmias are detected. Final impression: #1. Negative stress test #2. Patient did not express any chest pain. 3. No arrhythmias detected #4. Patient's exercise capacity is average
--- NOTE | 2018-12-20 13:02 | EST ---
Stress Test Results/Findings: Exam Performed: stress test Exam Date: 12/20/18 Reason for Exam: CHEST PAIN Height: 5 ft 3 in Weight: 108.862 kg Protocol: SYED Stage: 3 Duration of Exercise: 8:00 Resting Heart Rate: 99 Resting Blood Pressure: 149/77 Maximum Achieved Heart Rate: 167 Maximum Achieved Blood Pressure: 204/54 85% PMHR: 162 100% PMHR: 190 METS: 9.7 Technologist Comment: Stress Test Results/Findings: This is a 28-year-old female with history of hypertension being evaluated for symptoms of chest pain. Stress data: Baseline EKG showed sinus rhythm with normal AK interval, QRS duration. Blood pressure at rest is 149/77 with pulse rate of 99. Patient walked on the Syed protocol for 8 minutes achieving a maximal heart rate of 167 with blood pressure 204/54. EKGs taken during and after x-ray did not reveal any changes of ischemia. Patient did not experience any chest pain. No arrhythmias are detected. Final impression: #1. Negative stress test #2. Patient did not express any chest pain. 3. No arrhythmias detected #4. Patient's exercise capacity is average MTDD
== END | disposition home or self-care (01) ==
LOC: RADNMMAIN 10:29
PROVIDERS: ATTEND Internal Medicine Interventional Cardiology
DX: R07.89 Other chest pain (principal)
CPT/HCPCS: 93017

== ENCOUNTER → 2019-01-11 | Outpatient (CLI) | payer BC | END | disposition home or self-care (01) | LOC: LABWHC1 09:20 | PROVIDERS: ATTEND Family Medicine | DX: E03.9 Hypothyroidism, unspecified (principal) | CPT/HCPCS: 36415; 84443 ==

== ENCOUNTER → 2019-01-18 | Outpatient (CLI) | payer BC ==
--- NOTE | 2019-01-19 19:45 | ECHOF ---
Referral Reason:Gerd K21.9 hernia K44.9 MEASUREMENTS -------- HEIGHT: 160.0 cm WEIGHT: 108.9 kg BP: IVSd: 1.1 cm (0.6 - 1.1) LVIDd: 4.5 cm (3.9 - 5.3) LVPWd: 1.3 cm (0.6 - 1.1) IVSs: 1.4 cm LVIDs: 2.8 cm LVPWs: 1.4 cm RVIDd: 3.0 cm (< 3.3) LAESV Index (A-L): 19.35 ml/m Ao Diam: 3.2 cm (2.0 - 3.7) LA Diam: 3.2 cm (2.7 - 3.8) AV Cusp: 2.0 cm (1.5 - 2.6) EPSS: 0.4 cm MV E Sammy: 1.12 m/s MV DecT: 217 ms MV A Sammy: 1.06 m/s MV E/A Ratio: 1.06 RAP: 5.00 mmHg RVSP: 20.32 mmHg MV EF SLOPE: 112.84 mm/s (70 - 150) MV EXCURSION: 18.05 mm (> 18.000) FINDINGS -------- Sinus rhythm. This was a technically adequate study. The left ventricular size is normal. There is mild concentric left ventricular hypertrophy. Overa ll left ventricular systolic function is normal with, an EF between 55 - 60 %. The diastolic fillin g pattern is normal for the age of the patient 13.23. The right ventricle is normal in size. Normal LA size by volume 22+/-6 ml/m2. The right atrial size is normal. Interatrial and interventricular septum intact. The aortic valve is trileaflet and appears structurally normal. There is no evidence of aortic regu rgitation. There is no evidence of aortic stenosis. There is trace mitral regurgitation. Mild tricuspid regurgitation present. There is no evidence of pulmonary hypertension. The right v entricular systolic pressure, as measured by Doppler, is 20.32mmHg. There is no pulmonic regurgitation present. The aortic root size is normal. IVC Not well visulized. There is no pericardial effusion. CONCLUSIONS -------- 1. Sinus rhythm. 2. This was a technically adequate study. 3. The left ventricular size is normal. 4. There is mild concentric left ventricular hypertrophy. 5. Overall left ventricular systolic function is normal with, an EF between 55 - 60 %. 6. The diastolic filling pattern is normal for the age of the patient 13.23 7. The right ventricle is normal in size. 8. Normal LA size by volume 22+/-6 ml/m2. 9. The right atrial size is normal. 10. Interatrial and interventricular septum intact. 11. The aortic valve is trileaflet and appears structurally normal. 12. There is no evidence of aortic regurgitation. 13. There is no evidence of aortic stenosis. 14. There is trace mitral regurgitation. 15. Mild tricuspid regurgitation present. 16. There is no evidence of pulmonary hypertension. 17. The right ventricular systolic pressure, as measured by Doppler, is 20.32mmHg. 18. There is no pulmonic regurgitation present. 19. The aortic root size is normal. 20. IVC Not well visulized. 21. There is no pericardial effusion. BREAD AND PASTRY BAKER: Ynes Dias RDCS
== END | disposition home or self-care (01) ==
LOC: RADECHMAIN 11:08
PROVIDERS: ATTEND Internal Medicine Interventional Cardiology
DX: I07.1 Rheumatic tricuspid insufficiency (principal)
CPT/HCPCS: 93306

== ENCOUNTER → 2019-02-07 | Outpatient (CLI) | payer BC ==
[2019-02-07 17:50] LABS: Hemoglobin A1C 5.6 % (4.0-6.0)
== END | disposition home or self-care (01) ==
LOC: LABWHC1 09:27
PROVIDERS: ATTEND Family Medicine
DX: Z51.81 Encounter for therapeutic drug level monitoring (principal); Z79.899 Other long term (current) drug therapy
CPT/HCPCS: 36415; 83036

== ENCOUNTER → 2019-04-06 | Outpatient (CLI) | payer BC | LOC: LABWHC1 11:27 | PROVIDERS: ATTEND Family Medicine | DX: E03.9 Hypothyroidism, unspecified (principal) | CPT/HCPCS: 36415; 84443 ==

== ENCOUNTER → 2019-06-22 | Outpatient (CLI) | payer BC ==
[2019-06-22 15:15] LABS: Basophils # (A) 0.1 k/uL (0-0.2); Basophils % (A) 1 %; Eosinophils # (A) 0.3 k/uL (0-0.7); Eosinophils % (A) 3 %; HCT 42.3 % (34.0-46.0); Lymphocytes # (A) 2.8 k/uL (1.0-4.8); Lymphocytes % (A) 26 %; MCH 29.1 pg (25.0-35.0); MCV 88.3 fL (80.0-100.0); Mean Platelet Volume 7.1; Monocytes # (A) 0.4 k/uL (0-1.0); Monocytes % (A) 3 %; Neutrophils # (A) 7.1 k/uL (1.3-7.7); Neutrophils % (A) 66 %; Platelet Count 357 k/uL (150-450); RBC 4.79 m/uL (3.80-5.40); RDW 12.4 % (11.5-15.5); WBC 10.8 k/uL (3.8-10.6)
[2019-06-22 18:55] LABS: African American GFR (CKD) 113.9 (60.0-200.0); Albumin 4.6 g/dL (3.80-4.90); Anion Gap 9.8 mmol/L (4.00-12.00); BUN/Creat Ratio 12.5 Ratio (12.00-20.00); Calcium 9.8 mg/dL (8.7-10.3); Carbon Dioxide 24.2 mmol/L (21.6-31.8); Chol/HDL Ratio 3.59; Globulin 2.3 g/dL (1.6-3.3); LDL Cholesterol,Calculated 89.8 mg/dL (0.0-131.0); Non-African American GFR(CKD) 98.2 (60.0-200.0); Total Bilirubin 0.4 mg/dL (0.2-1.2); Total Protein 6.9 g/dL (6.2-8.2); VLDL Calculation 24.2 mg/dL (5.00-40.00)
[2019-06-22 19:57] LABS: Hemoglobin A1C 5.5 % (4.0-6.0)
== END | disposition home or self-care (01) ==
LOC: LABWHC1 13:55
PROVIDERS: ATTEND Family Medicine
DX: Z00.00 Encounter for general adult medical examination without abnormal findings (principal); I10 Essential (primary) hypertension; B89 Unspecified parasitic disease
CPT/HCPCS: 36415; 80053; 80061; 83036; 84443; 85025

== ENCOUNTER → 2019-07-13 | Outpatient (CLI) | payer BC ==
--- NOTE | 2019-07-13 15:41 | XR ---
EXAMINATION TYPE: XR chest 2V DATE OF EXAM: 07/13/2019 COMPARISON: Prior chest x-ray 12/11/2018 HISTORY: Persistent cough TECHNIQUE: Frontal and lateral views of the chest are obtained. FINDINGS: There is no focal air space opacity, pleural effusion, or pneumothorax seen. The cardiac silhouette size is within normal limits. Calcified granuloma present left upper lobe. There are calc ified left hilar nodes. The osseous structures are intact. IMPRESSION: No acute cardiopulmonary process.
== END | disposition home or self-care (01) ==
LOC: RADXRMAIN 15:12
PROVIDERS: ATTEND Family Medicine
DX: J18.9 Pneumonia, unspecified organism (principal)
CPT/HCPCS: 71046

== ENCOUNTER → 2019-08-01 | Outpatient (CLI) | payer BC ==
--- NOTE | 2019-08-01 13:37 | CT ---
EXAMINATION TYPE: CT chest w con DATE OF EXAM: 08/01/2019 COMPARISON: CT chest 12/11/2018 HISTORY: enlarged lymph nodes CT DLP: 527.7 mGycm Automated exposure control for dose reduction was used. CONTRAST: CT scan of the chest is performed with IV Contrast, patient injected with 100 mL of Isovue 300. FINDINGS: LUNGS: The lungs are grossly clear, there is no concerning parenchymal mass or nodule identified. Danny cified granuloma present in the left upper lobe, some minimal subpleural nodularity present at the le ft lung base likely postinflammatory There is no pleural effusion or pneumothorax seen. The trache obronchial tree is patent. MEDIASTINUM: There are no greater than 1 cm hilar or mediastinal lymph nodes. Calcified nodes are pre sent within the prevascular region, left hilar region. No pericardial effusion is seen. AORTA: No additional significant abnormality is seen. OTHER: Liver shows low attenuation likely due to hepatic steatosis. IMPRESSION: Old granulomatous disease.
== END | disposition home or self-care (01) ==
LOC: RADCTMAIN 11:11
PROVIDERS: ATTEND Family Medicine
DX: D71 Functional disorders of polymorphonuclear neutrophils (principal); R07.9 Chest pain, unspecified; J84.10 Pulmonary fibrosis, unspecified
CPT/HCPCS: 82164; 71260; 36415; Q9967

== ENCOUNTER → 2019-10-25 | Outpatient (CLI) | payer BC ==
[2019-10-25 16:20] LABS: T4, Free (Free Thyroxine) 1.5 ng/dL (0.80-1.80)
[2019-10-25 17:36] LABS: Cyclic Citrull Pep IgG Unit <0.5 U/mL; Cyclic Citrullinated Pep IgG NEGATIVE (NEGATIVE); DNA Double-Stranded NEGATIVE (NEGATIVE)
[2019-10-27 09:22] LABS: Angiotensin-1 Converting Enz. 43 U/L (8-52)
== END | disposition home or self-care (01) ==
LOC: LABWHC1 09:37
PROVIDERS: ATTEND Family Medicine
DX: I10 Essential (primary) hypertension (principal); B89 Unspecified parasitic disease
CPT/HCPCS: 36415; 82164; 84439; 84443; 84481; 85613; 85652; 85730; 86038; 86200; 86225; 86431

== ENCOUNTER → 2019-11-14 | Outpatient (CLI) | payer BC ==
[2019-11-14 09:54] LABS: HCT 41.4 % (34.0-46.0); HGB 13.3 gm/dL (11.4-16.0); MCH 28.3 pg (25.0-35.0); MCHC 32.2 g/dL (31.0-37.0); MCV 88.1 fL (80.0-100.0); Mean Platelet Volume 7.4; Platelet Count 324 k/uL (150-450); RDW 12.2 % (11.5-15.5)
[2019-11-14 16:50] LABS: African American GFR (CKD) 98.7 (60.0-200.0); Albumin 4.5 g/dL (3.80-4.90); Albumin/Globulin Ratio 2.05 (1.60-3.17); Anion Gap 7.6 mmol/L (4.00-12.00); BUN/Creat Ratio 11.11 Ratio (12.00-20.00); Calcium 9.5 mg/dL (8.7-10.3); Carbon Dioxide 27.4 mmol/L (21.6-31.8); Globulin 2.2 g/dL (1.6-3.3); Non-African American GFR(CKD) 85.2 (60.0-200.0); Potassium 4.5 mmol/L (3.5-5.5); Total Bilirubin 0.5 mg/dL (0.2-1.2); Total Protein 6.7 g/dL (6.2-8.2)
[2019-11-14 18:05] LABS: Hemoglobin A1C 5.4 % (4.0-6.0)
== END | disposition home or self-care (01) ==
LOC: LABWHC1 09:00
PROVIDERS: ATTEND Family Medicine
DX: I10 Essential (primary) hypertension (principal)
CPT/HCPCS: 36415; 80053; 83036; 84681; 85027

== ENCOUNTER → 2019-12-14 | Outpatient (CLI) | payer BC | END | disposition home or self-care (01) | LOC: LABWHC1 13:39 | PROVIDERS: ATTEND Internal Medicine Sleep Medicine | DX: Z53.9 Procedure and treatment not carried out, unspecified reason (principal) ==

== ENCOUNTER → 2019-12-18 | Outpatient (CLI) | payer BC ==
--- NOTE | 2019-12-15 08:29 | MM ---
Reason for exam: clinical finding. History: Family history of breast cancer in maternal aunt. Taking hormonal contraceptives for 13 years. Physical Findings: Nurse Summary: 1cm nodule in the right breast at 1 o'clock and a 0.5cm nodule in the left breast at 11 o'clock (nurse TM). MG 3D Diag Mammo W/Cad IDALIA Bilateral CC and MLO view(s) were taken. There are scattered fibroglandular densities. There is no discrete abnormality. Bilateral upper inner quadrant palpables. On the left this corresponds to site of pain for the patient. These results were verbally communicated with the patient and result sheet given to the patient on 12/14/19. ASSESSMENT: Incomplete: need additional imaging evaluation, BI-RAD 0 RECOMMENDATION: Ultrasound of both breasts. (upper inner quadrants)
--- NOTE | 2019-12-15 08:30 | USB ---
Reason for exam: additional evaluation requested from abnormal screening. History: Family history of breast cancer in maternal aunt. Taking hormonal contraceptives for 13 years. US Breast Limited BILAT Technologist: Leia Carrasquillo Right limited breast ultrasound including focal area of concern, retroareolar and axilla demonstrates no cystic or solid lesion seen. Left limited breast ultrasound including focal area of concern, retroareolar and axilla demonstrates no cystic or solid lesion seen. Scanned right 12-3 o'clock, scanned left 9-12 o'clock. These results were verbally communicated with the patient and result sheet given to the patient on 12/14/19. ASSESSMENT: Negative, BI-RAD 1 RECOMMENDATION: Routine screening mammogram of both breasts at age 38. (unless clinical indication to start sooner) Manage patient on a clinical basis with regard to left breast pain.
[2019-12-19 13:34] LABS: Alt. alternata IgE Class CLASS 2; Alternaria alternata IgE 2.96 kU/L (<0.10); Asperg. fumagatus IgE Class CLASS 1; Candida albicans IgE Class CLASS 0/1; Clad herbarum IgE 0.72 kU/L (<0.10); Clad herbarum IgE Class CLASS 2; Latex IgE Class CLASS 0/1; Mucor racemosus IgE <0.10 kU/L (<0.10); Mucor racemosus IgE Class CLASS 0; Penicillium chrysogenum IgE 0.14 kU/L (<0.10); Penicillium chrysogenum IgE Cl CLASS 0/1
[2019-12-24 18:51] LABS: Alternaria Alternata IgG 16.8 mcg/mL (< 13.6); Aspergillus fumigatus IgG Not detected (Not detected); Aureobasidium pullulans IgG 8.2 mcg/mL (< 13.6); Cladosporium herbarium IgG 16.9 mcg/mL (< 14.7); Phoma ssp. IgG 16.7 mcg/mL (< 6.6); Saccaharomospora viridis Not detected (Not detected); Saccaharopoly. rectivirgula Not detected (Not detected)
== END | disposition home or self-care (01) ==
LOC: RADMAMWWP 12-14 14:21 → LABWHC1 09:23
PROVIDERS: ATTEND Family Medicine
DX: B44.81 Allergic bronchopulmonary aspergillosis (principal)
CPT/HCPCS: 36415; 77062; 77066; 86001; 86003; 86606; 86609

== ENCOUNTER → 2020-01-04 | Outpatient (CLI) | payer BC ==
--- NOTE | 2020-01-05 03:48 | SFUN ---
SLEEP CENTER FOLLOW UP NOTE DATE OF SERVICE: 01/04/2020. This 29-year-old lady had been followed in Sleep Center for treatment of obstructive sleep apnea-hypopnea syndrome. Patient continued to use CPAP equipment, but feels the pressure is too high for her now and she also feels there is too much condensation of water in her nasal mask. I checked her CPAP unit. Usage is 18 out of 30 nights, 11 out of 30 nights for more than 4 hours with average usage 4.4 hours per night. Leak is 11 L/minute. Apnea- hypopnea index only 0.2, which is perfect. CPAP pressure is 10 cm of water. The humidifier is at level 4. [place] Sleepiness Scale today is 3. MEDICATIONS: Synthroid, Toprol, Norvasc. PHYSICAL EXAMINATION: GENERAL: Patient in no distress. VITAL SIGNS: BP 149/93, HR 90, RR 16, height 5 feet 4 inches, weight 212, body mass index 36.3, temperature 98.7, oxygen saturation 100%. HEENT: PERRLA, EOMI. Oropharynx extremely low position of soft palate. Mallampati 4. NECK: Supple, no JVD. Thyroid is not palpable. LUNGS: Clear to percussion and to auscultation. Good air exchange. No wheezing or rhonchi. HEART: S1, S2 regular. No murmurs, gallops, or rubs. ABDOMEN: Obese. EXTREMITIES: No clubbing or cyanosis. SENIOR QUALITY MANAGER: Awake, alert, and oriented X3. Cranial nerves 2 to 7 intact. There is no fasciculation or atrophy. noted. No focal deficits observed. IMPRESSION: 1. Obstructive sleep apnea-hypopnea syndrome. The patient demonstrated borderline compliance, benefitting from treatment. 2. Obesity. Patient lost 30 pounds since previous visit. 3. Hypertension. 4. 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 PLAN: 1. I discussed in detail question about condensation of water in the mask. I changed down humidity in the unit from 4 to 1. Patient will increase the temperature in the room slightly. 2. I change pressure in the CPAP unit down to 7 because patient lost weight and feels uncomfortable with this pressure. Also, I review results of previous titration. 3. Patient will continue to use PAP equipment every night for the whole night. 4. Sleep hygiene with regular time in bed for at least 7-1/2 to 8 hours. 5. Precautions related to driving. No driving if feeling sleepiness. 6. I will maintain all necessary prescription for PAP supplies including mask, tube, filters. 7. Watching weight. 8. No driving if feeling sleepiness. 9. Follow-up visit in 6 months or earlier if patient has any problems. Thank you very much for allowing me to participate in management of your patient. Sincerely, Alvino Senior MD, PhD, FAASM Diplomat of [employer] [place] [facility] [place] MMODL / TUN: [id number] /
== END | disposition home or self-care (01) ==
LOC: SLEEP 14:01
PROVIDERS: ATTEND Internal Medicine
DX: G47.33 Obstructive sleep apnea (adult) (pediatric) (principal); Z53.9 Procedure and treatment not carried out, unspecified reason

== ENCOUNTER 2020-01-22 16:00 | Observation (INO) | payer BC ==
--- NOTE | 2020-01-22 16:22 | ED ---
General Adult HPI - General Chief complaint: Chest Pain Stated complaint: Chest Pain Time Seen by Provider: 01/22/20 16:04 Source: patient, EMS Mode of arrival: EMS Limitations: no limitations - History of Present Illness Initial comments: Dictation was produced using [employer] dictation software. please excuse any grammatical, word or spelling errors. This patient was cared for during a federal and state declared state of emergency secondary to Covid 19 Chief Complaint: 29-year-old female past medical history of hypertension and thyroid disease presents with chest pain. History of Present Illness: Patient is a 29-year-old female she has had worsening chest pain starting this morning. She was at work she works on night shifts. States that she does have a substernal pressure that radiates to her intrascapular region. States that the pain did not really get any better. She called EMS and patient was given nitroglycerin. She does report that the nitroglycerin really helped. Denies any numbness and paresthesias to the arms or legs. States that her pain is much more mild today. She does take metoprolol prescribed by manager of compliance. Patient has similar episodes sometime ago her sugars via by manager of compliance and had a stress test and was found to be negative. She has strong family history of acute coronary syndrome. She denies any pleurisy. She has never had a DVT or blood clot before The ROS documented in this emergency department record has been reviewed and confirmed by me. Those systems with pertinent positive or negative responses have been documented in the HPI. All other systems are other negative and/or noncontributory. PHYSICAL EXAM: General Impression: Alert and oriented x3, not in acute distress HEENT: Normocephalic atraumatic, extra-ocular movements intact, pupils equal and reactive to light bilaterally, mucous membranes moist. Cardiovascular: Heart regular rate and rhythm Chest: Able to complete full sentences, no retractions, no tachypnea Abdomen: abdomen soft, non-tender, non-distended, no organomegaly Musculoskeletal: Pulses present and equal in all extremities, no peripheral aubrey a, no lower extremity girth asymmetry Motor: no focal deficits noted Neurological: CN II-XII grossly intact, no focal motor or sensory deficits noted Skin: Intact with no visualized rashes Psych: Normal affect and mood ED course: 29-year-old female presents with chest pain signs upon arrival are w ithin acceptable limits. Laboratory evaluation obtained. Mild excess of 14.0 likely secondary distress. Coag panel is unremarkable. D-dimer 0.39, negative. Metabolic panel is negative. HCG is negative. X-rays negative. Considering patient's family history she has comorbidities. There is concern for acute coronary syndrome. Patient will be admitted with cardiology consultation. Patient given aspirin. Case is discussed with Dr. Samson was willing to accept patients care. EKG interpretation: Ventricular rate 80, normal sinus rhythm,. Interval 154, QRS 84, QTC 433. No NE prolongation, no QTC prolongation, no ST or T-wave changes noted. EKG compared to 12/10/2018 showing no changes. Overall, this EKG is unremarkable - Related Data Home Medications Medication Instructions Recorded Confirmed amLODIPine [Norvasc] 5 mg PO DAILY 12/10/18 01/22/20 Albuterol Sulfate [Proair Hfa] 1 - 2 puff INHALATION RT-QID PRN 01/22/20 0 Metoprolol Succinate (ER) [Toprol 25 mg PO DAILY 01/22/20 01/22/20 Xl] Previous Rx's Medication Instructions Recorded Aspirin 325 mg PO DAILY tab 12/11/18 Levothyroxine Sodium [Synthroid] 100 mcg PO DAILY@0630 tab 12/11/18 Allergies Allergy/AdvReac Type Severity Reaction Status Date / Time No Known Allergies Allergy Verified 01/22/20 17:33 Review of Systems ROS Statement: Those systems with pertinent positive or pertinent negative responses have been documented in the HPI. ROS Other: All systems not noted in ROS Statement are negative. Past Medical History Past Medical History: Hypertension, Sleep Apnea/CPAP/BIPAP Additional Past Medical History / Comment(s): tachycardia History of Any Multi-Drug Resistant Organisms: None Reported Past Surgical History: No Surgical Hx Reported Past Anesthesia/Blood Transfusion Reactions: No Reported Reaction Past Psychological History: No Psychological Hx Reported Smoking Status: Never smoker Past Alcohol Use History: None Reported Past Drug Use History: None Reported - Past Family History Father Family Medical History: Diabetes Mellitus, Hypertension Mother Family Medical History: No Reported History General Exam Limitations: no limitations Course Vital Signs 01/22/20 16:00 Temperature 98.8 F Pulse Rate 90 Respiratory 18 Rate Blood Pressure 129/78 O2 Sat by Pulse 100 Oximetry Medical Decision Making - Lab Data Result diagrams: 01/22/20 16:47 01/22/20 16:47 Lab Results 01/22/20 01/22/20 01/22/20 Range/Units 16:47 16:47 16:47 WBC 14.0 H (3.8-10.6) k/uL RBC 4.88 (3.80-5.40) m/uL Hgb 14.0 (11.4-16.0) gm/dL Hct 41.5 (34.0-46.0) % MCV 85.2 (80.0-100.0) fL MCH 28.7 (25.0-35.0) pg MCHC 33.7 (31.0-37.0) g/dL RDW 12.8 (11.5-15.5) % Plt Count 326 (150-450) k/uL Neutrophils % 73 % Lymphocytes % 20 % Monocytes % 4 % Eosinophils % 2 % Basophils % 0 % Neutrophils # 10.2 H (1.3-7.7) k/uL Lymphocytes # 2.7 (1.0-4.8) k/uL Monocytes # 0.6 (0-1.0) k/uL Eosinophils # 0.2 (0-0.7) k/uL Basophils # 0.1 (0-0.2) k/uL PT 9.7 (9.0-12.0) sec INR 0.9 (<1.2) APTT 23.4 (22.0-30.0) sec D-Dimer 0.39 (<0.60) mg/L FEU Sodium 138 (137-145) mmol/L Potassium 3.8 (3.5-5.1) mmol/L Chloride 107 (98-107) mmol/L Carbon Dioxide 21 L (22-30) mmol/L Anion Gap 10 mmol/L BUN 9 (7-17) mg/dL Creatinine 0.72 (0.52-1.04) mg/dL Est GFR (CKD-EPI)AfAm >90 (>60 ml/min/1.73 sqM) Est GFR (CKD-EPI)NonAf >90 (>60 ml/min/1.73 sqM) Glucose 117 H (74-99) mg/dL Calcium 9.9 (8.4-10.2) mg/dL Magnesium 2.1 (1.6-2.3) mg/dL Total Bilirubin 0.6 (0.2-1.3) mg/dL AST 32 (14-36) U/L ALT 36 H (4-34) U/L Alkaline Phosphatase 69 (38-126) U/L Troponin I (0.000-0.034) ng/mL Total Protein 7.3 (6.3-8.2) g/dL Albumin 4.4 (3.5-5.0) g/dL Urine HCG, Qual (Not Detectd) 01/22/20 01/22/20 Range/Units 16:47 17:13 WBC (3.8-10.6) k/uL RBC (3.80-5.40) m/uL Hgb (11.4-16.0) gm/dL Hct (34.0-46.0) % MCV (80.0-100.0) fL MCH (25.0-35.0) pg MCHC (31.0-37.0) g/dL RDW (11.5-15.5) % Plt Count (150-450) k/uL Neutrophils % % Lymphocytes % % Monocytes % % Eosinophils % % Basophils % % Neutrophils # (1.3-7.7) k/uL Lymphocytes # (1.0-4.8) k/uL Monocytes # (0-1.0) k/uL Eosinophils # (0-0.7) k/uL Basophils # (0-0.2) k/uL PT (9.0-12.0) sec INR (<1.2) APTT (22.0-30.0) sec D-Dimer (<0.60) mg/L FEU Sodium (137-145) mmol/L Potassium (3.5-5.1) mmol/L Chloride (98-107) mmol/L Carbon Dioxide (22-30) mmol/L Anion Gap mmol/L BUN (7-17) mg/dL Creatinine (0.52-1.04) mg/dL Est GFR (CKD-EPI)AfAm (>60 ml/min/1.73 sqM) Est GFR (CKD-EPI)NonAf (>60 ml/min/1.73 sqM) Glucose (74-99) mg/dL Calcium (8.4-10.2) mg/dL Magnesium (1.6-2.3) mg/dL Total Bilirubin (0.2-1.3) mg/dL AST (14-36) U/L ALT (4-34) U/L Alkaline Phosphatase (38-126) U/L Troponin I <0.012 (0.000-0.034) ng/mL Total Protein (6.3-8.2) g/dL Albumin (3.5-5.0) g/dL Urine HCG, Qual Not Detected (Not Detectd) Disposition Clinical Impression: Chest pain Disposition: ADMITTED IP TO THIS [facility] Condition: Fair Referrals: Carl Samson MD [Primary Care Provider] - 1-2 days Decision Time: 18:00
[2020-01-22 16:54] LABS: Basophils # (A) 0.1 k/uL (0-0.2); Basophils % (A) 0 %; Eosinophils # (A) 0.2 k/uL (0-0.7); Eosinophils % (A) 2 %; HCT 41.5 % (34.0-46.0); Lymphocytes # (A) 2.7 k/uL (1.0-4.8); Lymphocytes % (A) 20 %; MCH 28.7 pg (25.0-35.0); MCHC 33.7 g/dL (31.0-37.0); MCV 85.2 fL (80.0-100.0); Mean Platelet Volume 7.3; Monocytes # (A) 0.6 k/uL (0-1.0); Monocytes % (A) 4 %; Neutrophils # (A) 10.2 k/uL (1.3-7.7); Neutrophils % (A) 73 %; Platelet Count 326 k/uL (150-450); RBC 4.88 m/uL (3.80-5.40); RDW 12.8 % (11.5-15.5)
[2020-01-22 17:07] LABS: ALT 36 U/L (4-34); AST 32 U/L (14-36); African American GFR (CKD) >90 (>60 ml/min/1.73 sqM); Albumin 4.4 g/dL (3.5-5.0); Alkaline Phosphatase 69 U/L (38-126); Anion Gap 10 mmol/L; Blood Urea Nitrogen 9 mg/dL (7-17); Calcium 9.9 mg/dL (8.4-10.2); Carbon Dioxide 21 mmol/L (22-30); Chloride 107 mmol/L (98-107); Glucose 117 mg/dL (74-99); Magnesium 2.1 mg/dL (1.6-2.3); Non-African American GFR(CKD) >90 (>60 ml/min/1.73 sqM); Potassium 3.8 mmol/L (3.5-5.1); Sodium 138 mmol/L (137-145); Total Bilirubin 0.6 mg/dL (0.2-1.3); Total Protein 7.3 g/dL (6.3-8.2)
[2020-01-22 17:28] LABS: D-Dimer 0.39 mg/L FEU (<0.60); INR 0.9 (<1.2); Partial Thromboplastin Time 23.4 sec (22.0-30.0); Prothrombin Time 9.7 sec (9.0-12.0)
--- NOTE | 2020-01-22 17:53 | XR ---
EXAMINATION TYPE: XR chest 2V DATE OF EXAM: 01/22/2020 COMPARISON: Chest x-ray July 13, 2019. CT chest under 2019 HISTORY: Chest pain today. TECHNIQUE: Frontal and lateral views of the chest are obtained. FINDINGS: Overlying EKG leads are now present. There is no focal air space opacity, pleural effusion , or pneumothorax seen. The cardiac silhouette size is within normal limits. The osseous structure s are intact. IMPRESSION: No acute cardiopulmonary process. No significant change from prior studies.
[2020-01-22] MEDS ORDERED: ASPIRIN 81 MG PO STA (17:56)
[2020-01-22] MEDS ORDERED: NITROGLYCERIN SL TABS 0.4 MG TAB SUBLINGUAL PRN (17:56)
[2020-01-23] MEDS ORDERED: LEVOTHYROXINE 100 MCG TAB PO SCH (06:30)
[2020-01-23 06:59] LABS: Cholesterol 130 mg/dL (<200); HDL Cholesterol 52 mg/dL (40-60); LDL Cholesterol,Calculated 59 mg/dL (0-99); Triglycerides 94 mg/dL (<150)
[2020-01-23 08:45] VITALS: PULSE 77; RESP 16; TEMP 97.8
[2020-01-23] MEDS ORDERED: METOPROLOL SUCCINATE (ER) 25 MG TAB.ER.24H PO SCH (09:00)
[2020-01-23] MEDS ORDERED: amLODIPine 5 MG TAB PO SCH (09:00)
[2020-01-23] MEDS ORDERED: ASPIRIN 325 MG TAB PO SCH (09:00)
--- NOTE | 2020-01-23 10:18 | HP ---
HISTORY AND PHYSICAL A 29-year-old white female who came in the hospital for a third episode where she gets out of breath with chest pain and tightness and heaviness in her chest. They told her she had a panic attack last year with this problem. She came in today with a similar problem. She has a history of allergic asthma, made worse by wearing her mask gets worse. She denies any symptoms of anxiety and does not think it is anxiety. She does not generalized alopecia and she is on thyroid for this low. 14-POINT REVIEW OF SYSTEMS: Negative except for as mentioned in HPI. She was on Symbicort inhaler 2 puffs b.i.d., but she does not take it regularly. The 14-point review of systems otherwise negative. PHYSICAL EXAM: MUSCULOSKELETAL: She has some chest pain with palpation over the left thoracic ribs, mid chest, midsternum which is similar to the pain she was having. CRANIAL NERVES : Intact. PSYCH: She appears to be little anxious, started crying when she starts feeling hopelessness for what she has. LUNGS: Fairly clear. Scattered rhonchi and wheeze minimal. HEAD: Normocephalic, atraumatic. SKIN: Generalized alopecia. D-dimer is negative. Metabolic panel is negative. test negative. X-rays negative. Her family is worried about MGUS. Will do a CAT scan of her chest and abdomen due to the chest pain and some neck swelling. She remains on a thyroid check, thyroid levels. EKG shows no changes. HOME MEDICATIONS: Norvasc 5 mg daily, ProAir is 1-2 puffs q.4 hours p.r.n., Toprol XL 25 mg daily. She is on Synthroid at home. Her doses are in the computer. ALLERGIES: Negative. PAST MEDICAL HISTORY: Hypothyroidism, sleep apnea, hypertension, nonsmoker. FAMILY HISTORY: Father diabetes mellitus, hypertension. Mother unclear. Temperature 98.8, pulse 89, respiratory rate 16 to 18. White count is 14, hemoglobin is 14, BUN is 9, creatinine 0.72. History of sleep apnea and hypertension. Cranial nerves are intact. Psych as mentioned above, anxious. ASSESSMENT: Atypical chest pain, suspect costochondritis versus asthma exacerbation versus may be worsened by wearing a face mask at work. Will put her back on her inhalers and see how she does with the breathing today and do CT of the chest and neck. Run some labs. MMODL / IJN: [id number] /
--- NOTE | 2020-01-23 11:00 | CT ---
EXAMINATION TYPE: CT neck chest w con DATE OF EXAM: 01/23/2020 COMPARISON: CT chest August 01, 2019. HISTORY: Neck/chest (upper) swelling CT DLP: 1302 mGycm. Automated Exposure Control for Dose Reduction was Utilized. TECHNIQUE: CT scan of the neck and thorax are performed following with IV Contrast, patient injected with 100 mL of Isovue 300. FINDINGS: Neck: Airway: No gross abnormality seen. Parotid/submandibular glands: No gross abnormality seen. Carotid/Vascular Structures: No suspicious abnormality. Osseous Structures: No suspicious abnormality. Other: Scattered subcentimeter lymph nodes throughout the neck bilaterally. No suspicious greater srikanth n 1 cm neck adenopathy. Nasal septum deviated to right of midline. Chest: LUNGS: The lungs are grossly clear, there is no concerning Noncalcified parenchymal mass or nodule id entified. Stable 4 mm calcified nodule or granuloma periphery inferior left upper lobe axial image 24 . There is no pleural effusion or pneumothorax seen bilaterally. The tracheobronchial tree is paten t. MEDIASTINUM: There are no greater than 1 cm hilar or mediastinal lymph nodes. No cardiomegaly or pe ricardial effusion is seen. OTHER: Persistent low-attenuation of liver suggest mild diffuse fatty infiltration. Small splenule re demonstrated. IMPRESSION: No suspicious mass or adenopathy. No suspicious ill-defined or well-formed fluid collecti on. No acute findings are evident.
--- NOTE | 2020-01-23 11:03 | PN ---
PROGRESS NOTE I suspect this 29-year-old white female admitted with some chest pain, near syncope, chest tightness. She was not taking her inhaler. She was wearing her mask at work, possibly has some allergic asthma exacerbation, costochondritis by cardiac workup is pending. She has some family wants her worked up for different disease processes in her chest including MGUS. Lungs show mild wheeze x4, cardiovascular, tenderness with palpation. Chest, S1-S2, hematology negative Homans. ASSESSMENT: Atypical chest pain. Please see further orders. Check CT scan of the neck and chest. Wait for Cardiology recommendations. Treat for costochondritis. MMODL / IJN: [id number] /
--- NOTE | 2020-01-23 12:56 | P.CRDCN ---
History of Present Illness History of present illness: HISTORY OF PRESENTING ILLNESS This is a pleasant 51-year-old male past medical history significant for hypertension and hypothyroidism. She follows in the office with Dr. Zavala. 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 Initially there was no radiation of the pain. She took some over the counter antacids and proceeded to work. As the night went on she started to feel nauseated and the chest discomfort persisted. Around 0700 this am the pain turned into a heavy pressure sensation prompting her to come to the ER. She continues to feel some discomfort under the left breast but the intensity has improved. She underwent an exercise stress test 01/2019 where she walked for 8 minutes and had no ischemic changes or arrhythmias. Echocardiogram obtained at that time was also normal. DIAGNOSTICS EKG reveals sinus mechanism with no ischemic changes. Chest xray negative for an acute cardiopulmonary process. Laboratory reviewed, WBC 14, sodium 138, potassium 3.8 creatinine 0.72, cardiac enzymes negative x3, LDL 52, TSH 2.15. Current cardiac medications include aspirin 325 mg daily, amlodipine 5 mg daily and toprol 25 mg daily. REVIEW OF SYSTEMS At the time of my exam: CONSTITUTIONAL: Denies fever or chills. CARDIOVASCULAR: Complains of chest pain. Denies shortness of breath, orthopnea, PND or palpitations. RESPIRATORY: Denies cough. GASTROINTESTINAL: Denies abdominal pain, diarrhea, constipation, nausea or vomiting. MUSCULOSKELETAL: Denies myalgias. NEUROLOGIC: Denies numbness, tingling or weakness. ENDOCRINE: Denies fatigue, weight change, polydipsia or polyurina. GENITOURINARY: Denies burning, hematuria or urgency with micturation. HEMATOLOGIC: Denies history of anemia or bleeding. PHYSICAL EXAMINATION Blood pressure 123/84 heart rate 77 afebrile and maintaining oxygen saturation on room air. CONSTITUTIONAL: No apparent distress. HEENT: Head is normocephalic. Pupils are equal, round. Sclerae anicteric. Mucous membranes of the mouth are moist. No JVD. No carotid bruit. CHEST EXAMINATION: Lungs are clear to auscultation. No chest wall tenderness is noted on palpation or with deep breathing. HEART EXAMINATION: Regular rate and rhythm. S1, S2 heard. No murmurs, gallops or rub. ABDOMEN: Soft, nontender. Positive bowel sounds. EXTREMITIES: 2+ peripheral pulses, no lower extremity edema and no calf tenderness. NEUROLOGIC EXAMINATION: Patient is awake, alert and oriented x3. ASSESSMENT Chest pain, an acute coronary event has been ruled out. Hypertension PLAN Perform stress echocardiogram to assess for stress induced ischemia. Symptoms are atypical for angina and sound more GI related. If stress test is normal she can be discharged home and follow up with Dr. Zavala in the office. Thank you kindly for this consultation. Nurse Practitioner note has been reviewed, I agree with a documented findings and plan of care. Patient was seen and examined. Past Medical History Past Medical History: Hypertension, Sleep Apnea/CPAP/BIPAP, Thyroid Disorder Additional Past Medical History / Comment(s): Tachycardia History of Any Multi-Drug Resistant Organisms: None Reported Past Surgical History: No Surgical Hx Reported Past Anesthesia/Blood Transfusion Reactions: No Reported Reaction Past Psychological History: No Psychological Hx Reported Smoking Status: Never smoker Past Alcohol Use History: None Reported Past Drug Use History: None Reported - Past Family History Father Family Medical History: Diabetes Mellitus, Hypertension Mother Family Medical History: No Reported History Medications and Allergies Home Medications Medication Instructions Recorded Confirmed Type amLODIPine [Norvasc] 5 mg PO DAILY 12/10/18 01/22/20 History Aspirin 325 mg PO DAILY tab 12/11/18 01/22/20 Rx Levothyroxine Sodium [Synthroid] 100 mcg PO DAILY@0630 tab 12/11/18 01/22/20 Rx Albuterol Sulfate [Proair Hfa] 1 - 2 puff INHALATION RT-QID PRN 01/22/20 01/22/20 History Metoprolol Succinate (ER) [Toprol 25 mg PO DAILY 01/22/20 01/22/20 History Xl] Allergies Allergy/AdvReac Type Severity Reaction Status Date / Time No Known Allergies Allergy Verified 01/22/20 17:33 Physical Exam Vitals: Vital Signs Temp Pulse Pulse Resp BP BP Pulse Ox 01/22/20 23:07 97.9 F 76 16 131/85 99 01/22/20 20:20 97.9 F 80 16 99 01/22/20 19:57 98.3 F 82 16 122/90 100 01/22/20 18:00 98.4 F 82 18 130/82 99 01/22/20 16:00 98.8 F 90 18 129/78 100 Intake and Output 01/22/20 01/23/20 01/23/20 22:59 06:59 14:59 Other: # Voids 1 1 Weight 97.069 kg Results 01/22/20 16:47 01/22/20 16:47 Cardiac Enzymes 01/22/20 01/22/20 01/22/20 Range/Units 16:47 16:47 20:18 AST 32 (14-36) U/L Troponin I <0.012 <0.012 (0.000-0.034) ng/mL 01/22/20 Range/Units 23:20 AST (14-36) U/L Troponin I <0.012 (0.000-0.034) ng/mL Coagulation 01/22/20 Range/Units 16:47 PT 9.7 (9.0-12.0) sec APTT 23.4 (22.0-30.0) sec Lipids 01/23/20 Range/Units 06:08 Triglycerides 94 (<150) mg/dL Cholesterol 130 (<200) mg/dL HDL Cholesterol 52 (40-60) mg/dL CBC 01/22/20 Range/Units 16:47 WBC 14.0 H (3.8-10.6) k/uL RBC 4.88 (3.80-5.40) m/uL Hgb 14.0 (11.4-16.0) gm/dL Hct 41.5 (34.0-46.0) % Plt Count 326 (150-450) k/uL Comprehensive Metabolic Panel 01/22/20 Range/Units 16:47 Sodium 138 (137-145) mmol/L Potassium 3.8 (3.5-5.1) mmol/L Chloride 107 (98-107) mmol/L Carbon Dioxide 21 L (22-30) mmol/L BUN 9 (7-17) mg/dL Creatinine 0.72 (0.52-1.04) mg/dL Glucose 117 H (74-99) mg/dL Calcium 9.9 (8.4-10.2) mg/dL AST 32 (14-36) U/L ALT 36 H (4-34) U/L Alkaline Phosphatase 69 (38-126) U/L Total Protein 7.3 (6.3-8.2) g/dL Albumin 4.4 (3.5-5.0) g/dL Current Medications Generic Name Dose Route Start Last Admin Trade Name Freq PRN Reason Stop Dose Admin Amlodipine Besylate 5 mg 01/23/20 09:00 Norvasc PO DAILY [facility] Aspirin 325 mg 01/23/20 09:00 Aspirin PO DAILY [facility] Levothyroxine Sodium 100 mcg 01/23/20 06:30 01/23/20 06:35 Synthroid PO 100 mcg DAILY@0630 [facility] Administration Metoprolol Succinate 25 mg 01/23/20 09:00 Toprol Xl PO DAILY [facility] Nitroglycerin 0.4 mg 01/22/20 17:56 Nitrostat SUBLINGUAL Q5M PRN Chest Pain Intake and Output 01/22/20 01/23/20 01/23/20 22:59 06:59 14:59 Other: # Voids 1 1 Weight 97.069 kg 01/22/20 16:47 01/22/20 16:47
--- NOTE | 2020-01-23 14:02 | ECHOS ---
STRESS ECHOCARDIOGRAM LUMASON: @@ Vial INDICATIONS: Chest pain. MEDICATIONS: @@ BASELINE HEART RATE: @@ BASELINE BLOOD PRESSURE: @@ MAXIMUM HEART RATE: @@ MAXIMUM BLOOD PRESSURE: @@ 85% MPHR: @@ 100% MPHR: @@ METS: @@ MAXIMUM STAGE REACHED: @@ TOTAL EXERCISE TIME: @@ CLINICAL INFORMATION: @@ Baseline EKG shows sinus rhythm, normal axis, normal intervals. Patient exercised on Frank protocol for a total of 9.5 minutes achieving 11 METS, 93% of predicted maximal heart rate without chest pain or diagnostic ST-segment depression. Baseline echo shows normal left ventricular size, wall motion and systolic function. Postexercise, there is normal hyperdynamic response of all segments of myocardium noted. CONCLUSION: 1. Negative stress test by EKG criteria. 2. Negative stress echo. EVA / TUN: [id number] /
[2020-01-23 15:27] VITALS: BP 122/81
[2020-01-23 17:29] LABS: Appearance,Urine Clear (Clear); Bacteria,Urine Rare /hpf; Bilirubin,Urine Negative (Negative); Blood,Urine Trace (Negative); Color,Urine Light Yellow; Glucose,Urine (UA) Negative (Negative); Ketones,Urine Negative (Negative); Leukocyte Esterase,Urine Moderate (Negative); Nitrite,Urine Negative (Negative); PH, Urine 5.5 (5.0-8.0); Protein,Urine Negative (Negative); RBC,Urine 2 /hpf (0-5); Specific Gravity,Urine 1.016 (1.001-1.035); Squamous Epithelial Cell,Urine 4 /hpf (0-4); Urobilinogen,Urine <2.0 mg/dL (<2.0); WBC,Urine 8 /hpf (0-5)
[2020-01-23 17:44] LABS: Protein, Total 7.1 g/dL (6.2-8.2)
[2020-01-24 13:03] LABS: Albumin 3.98 g/dL (3.80-4.90); Gamma Globulin 1.07 g/dL (0.70-1.50)
[2020-01-24 16:43] LABS: DNA Double-Stranded NEGATIVE (NEGATIVE)
[2020-01-25 11:49] LABS: ANA Pattern See Footnote
--- NOTE | 2020-02-20 06:52 | DS ---
DISCHARGE SUMMARY DATE OF ADMISSION: 01/22/2020 DATE OF DISCHARGE: 01/23/2020. MEDICATIONS: 1. Synthroid 100 mcg daily. 2. Aspirin 325 daily. 3. Norvasc 5 mg daily. 4. Albuterol sulfate 2 puffs q.4 hours p.r.n. DISCHARGE DIAGNOSES: 1. Hypothyroidism. 2. Hypertension. 3. Asthma. 4. Atypical chest pain. Stress echo was ordered by Cardiology, which was negative for any ischemia. Patient passed stress echo with negative stress echo, negative CAT scan of the head and neck at which time she was cleared for discharge. Medications as mentioned above. She will follow up in the outpatient setting as there is no nodules or suspicious mass. Please see further orders. Discharge clear. MMODL / IJN: [id number] /
== END 2020-01-23 17:25 ==
LOC: EC 16:00 → 3NCARDOBS 17:57
PROVIDERS: ADMIT Family Medicine; ATTEND Family Medicine
DX: R07.89 Other chest pain (principal); I10 Essential (primary) hypertension; R55 Syncope and collapse; G47.30 Sleep apnea, unspecified; J45.909 Unspecified asthma, uncomplicated; E03.9 Hypothyroidism, unspecified; Z79.899 Other long term (current) drug therapy; Z79.82 Long term (current) use of aspirin; Z79.890 Hormone replacement therapy; Z99.89 Dependence on other enabling machines and devices; Z79.51 Long term (current) use of inhaled steroids; Z86.59 Personal history of other mental and behavioral disorders; Z82.49 Family history of ischemic heart disease and other diseases of the circulatory system; Z83.3 Family history of diabetes mellitus
CPT/HCPCS: 93005 ×2; 99285; 36415; 93351; 85379; 80061; 80053; 84443; 83735; 84484; 85025; 85610; 85730; 81001; 81025; 84146; 84165; 86038; 86039; 86225; 71046; 70491; 71260; G0378 ×2; Q9967

== ENCOUNTER → 2020-01-29 | Outpatient (CLI) | payer BC ==
[2020-01-29 11:05] LABS: HCT 41.6 % (34.0-46.0); HGB 13.4 gm/dL (11.4-16.0); MCH 28.4 pg (25.0-35.0); MCHC 32.1 g/dL (31.0-37.0); MCV 88.4 fL (80.0-100.0); Mean Platelet Volume 7.4; Platelet Count 310 k/uL (150-450); RBC 4.71 m/uL (3.80-5.40); RDW 12.9 % (11.5-15.5); WBC 11.3 k/uL (3.8-10.6)
[2020-01-29 17:46] LABS: Hemoglobin A1C 5.4 % (4.0-6.0)
== END | disposition home or self-care (01) ==
LOC: LABWHC1 09:31
PROVIDERS: ATTEND Family Medicine
DX: E11.9 Type 2 diabetes mellitus without complications (principal); I10 Essential (primary) hypertension
CPT/HCPCS: 36415; 83036; 85027

== ENCOUNTER → 2020-02-07 | Outpatient (CLI) | payer BC ==
--- NOTE | 2020-02-08 09:40 | MR ---
EXAMINATION TYPE: MR tmj wo con DATE OF EXAM: 02/07/2020 COMPARISON: None HISTORY: Effusion unspecified joint, pain CONTRAST: Performed utilizing 0 mL intravenous Gadavist gadolinium contrast. TECHNIQUE: Multiplanar, multiecho imaging on a 3.0 Vi magnet is performed through the bilateral te mporomandibular junctions with stepwise opening. Findings: Large joint effusion is evident. Minimal fluid may be posterior to the right temporal condy le stepwise opening images. Right TMJ: There is normal subluxation of the mandible in relation to the temporal bone. The meniscus appears abnormal motion with recapture. Left TMJ: The meniscus is at the temporomandibular junctions and closed mouth position. There is norm al subluxation of the condyle. However, the meniscus appears to be retained within the temporomandibu lar junction. No motion of the meniscus is evident. IMPRESSIONS: 1. There appears to be normal motion of the temporal mandibular relation during the exam of the bilat eral temporomandibular junctions. However, the left temporomandibular meniscus appears fixed at the j oint space where as the right meniscus has normal motion and recapture.
== END | disposition home or self-care (01) ==
LOC: RADMRIMAIN 11:44
PROVIDERS: ATTEND Dentist Oral and Maxillofacial Surgery
DX: M26.69 Other specified disorders of temporomandibular joint (principal)
CPT/HCPCS: 70336

== ENCOUNTER 2020-04-14 14:13 | Emergency (ER) | payer BC, MEDICAID ==
[2020-04-14] MEDS ORDERED: HYDROmorphone 0.5 MG/0.5 ML SYRINGE IVP STA (14:45)
--- NOTE | 2020-04-14 15:04 | ED ---
ENT HPI - General Chief complaint: ENT Stated complaint: throat swelling Time Seen by Provider: 04/14/20 14:29 Source: patient, family Mode of arrival: ambulatory Limitations: no limitations - History of Present Illness Initial comments: 29-year-old male presenting to emergency Department with a chief complaint of throat tightness. Patient states her symptoms being ongoing for over a week. Patient states she was evaluated in the emergency department and was tested for Covid and strep throat which came back negative. Patient states she is not droo ling and he feels a "mass" in her throat. Denies any night sweats or chills. Denies any cough, chest pain or shortness of breath. Denies any one-sided weakness or paresthesias. She does report occasional dizziness where the room was spinning around her but not at the moment. - Related Data Home Medications Medication Instructions Recorded Confirmed amLODIPine [Norvasc] 5 mg PO DAILY 12/10/18 01/22/20 Albuterol Sulfate [Proair Hfa] 1 - 2 puff INHALATION RT-QID PRN 01/22/20 01/22/20 Metoprolol Succinate (ER) [Toprol 25 mg PO DAILY 01/22/20 01/22/20 Xl] Previous Rx's Medication Instructions Recorded Aspirin 325 mg PO DAILY tab 12/11/18 Levothyroxine Sodium [Synthroid] 100 mcg PO DAILY@0630 tab 12/11/18 Allergies Allergy/AdvReac Type Severity Reaction Status Date / Time No Known Allergies Allergy Verified 04/14/20 14:19 Review of Systems ROS Statement: Those systems with pertinent positive or pertinent negative responses have been documented in the HPI. ROS Other: All systems not noted in ROS Statement are negative. Past Medical History Past Medical History: Hypertension, Sleep Apnea/CPAP/BIPAP, Thyroid Disorder Additional Past Medical History / Comment(s): Tachycardia History of Any Multi-Drug Resistant Organisms: None Reported Past Surgical History: No Surgical Hx Reported Past Anesthesia/Blood Transfusion Reactions: No Reported Reaction Past Psychological History: No Psychological Hx Reported Smoking Status: Never smoker Past Alcohol Use History: None Reported Past Drug Use History: None Reported - Past Family History Father Family Medical History: Diabetes Mellitus, Hypertension Mother Family Medical History: No Reported History General Exam Limitations: no limitations General appearance: alert, in no apparent distress Head exam: Present: atraumatic, normocephalic, normal inspection Eye exam: Present: normal appearance, PERRL, EOMI Pupils: Present: normal accommodation ENT exam: Present: normal exam, normal oropharynx (Tonsil stone noted on the right tonsil.), mucous membranes moist, TM's normal bilaterally, normal external ear exam. Absent: other (No tenderness in the floor of the mouth. No oral lesions. No signs of peritonsillar abscess.) Neck exam: Present: normal inspection, full ROM. Absent: tenderness, lymphadenopathy Respiratory exam: Present: normal lung sounds bilaterally. Absent: respiratory distress, wheezes, rales, rhonchi, stridor, chest wall tenderness, accessory muscle use Cardiovascular Exam: Present: regular rate, normal rhythm, normal heart sounds GI/Abdominal exam: Present: soft. Absent: distended, tenderness, guarding Extremities exam: Present: normal inspection, full ROM, normal capillary refill. Absent: tenderness Back exam: Present: normal inspection, full ROM. Absent: tenderness, CVA tenderness (R), CVA tenderness (L) Neurological exam: Present: alert, oriented X3, normal gait Psychiatric exam: Present: normal affect, normal mood Skin exam: Present: warm, dry, intact, normal color Course Vital Signs 04/14/20 04/14/20 04/14/20 14:14 16:24 17:51 Temperature 98.7 F 98.6 F 98.9 F Pulse Rate 87 57 L 72 Respiratory 18 18 16 Rate Blood Pressure 175/111 134/77 134/86 O2 Sat by Pulse 98 99 98 Oximetry Medical Decision Making - Medical Decision Making 29-year-old female presenting to the emergency department with a chief complaint of throat tightness. On physical examination, I noted a tonsil stone on the right tonsil. No signs of peritonsillar abscess. Patient is not in respiratory distress. No signs of angioedema in the face. No signs of Mina's angina. X-ray of the soft tissues is unremarkable. CT of the soft tissues neck was obtained showing no significant findings that could result in the throat tightness. CBC reveals mild leukocytosis of 13.2k . Advised the patient to follow up with an ENT specialist. Strict return parameters were thoroughly discussed patient was understanding and agreeable. Case discussed with physician. - Lab Data Result diagrams: 04/14/20 16:53 04/14/20 15:36 Lab Results 04/14/20 04/14/20 Range/Units 15:36 16:53 WBC 13.8 H (3.8-10.6) k/uL RBC 4.92 (3.80-5.40) m/uL Hgb 14.6 (11.4-16.0) gm/dL Hct 44.0 (34.0-46.0) % MCV 89.3 (80.0-100.0) fL MCH 29.7 (25.0-35.0) pg MCHC 33.3 (31.0-37.0) g/dL RDW 12.3 (11.5-15.5) % Plt Count 351 (150-450) k/uL Neutrophils % 71 % Lymphocytes % 20 % Monocytes % 4 % Eosinophils % 3 % Basophils % 1 % Neutrophils # 9.8 H (1.3-7.7) k/uL Lymphocytes # 2.8 (1.0-4.8) k/uL Monocytes # 0.6 (0-1.0) k/uL Eosinophils # 0.3 (0-0.7) k/uL Basophils # 0.1 (0-0.2) k/uL Sodium 135 L (137-145) mmol/L Potassium 4.5 (3.5-5.1) mmol/L Chloride 104 (98-107) mmol/L Carbon Dioxide 23 (22-30) mmol/L Anion Gap 8 mmol/L BUN 7 (7-17) mg/dL Creatinine 0.91 (0.52-1.04) mg/dL Est GFR (CKD-EPI)AfAm >90 (>60 ml/min/1.73 sqM) Est GFR (CKD-EPI)NonAf 84 (>60 ml/min/1.73 sqM) Glucose 98 (74-99) mg/dL Calcium 9.4 (8.4-10.2) mg/dL Total Bilirubin 0.6 (0.2-1.3) mg/dL AST 37 H (14-36) U/L ALT 38 H (4-34) U/L Alkaline Phosphatase 57 (38-126) U/L Total Protein 7.2 (6.3-8.2) g/dL Albumin 4.2 (3.5-5.0) g/dL Disposition Clinical Impression: Throat discomfort, Tonsil stone, Sore throat Disposition: HOME SELF-CARE Condition: Stable Instructions (If sedation given, give patient instructions): Thyroid (By mouth) Additional Instructions: Follow-up with an ENT specialist. Return to emergency department if symptoms worsen. Is patient prescribed a controlled substance at d/c from ED?: No Referrals: Carl Samson MD [Primary Care Provider] - 1-2 days Alonzo Woods MD [STAFF PHYSICIAN] - 1-2 days Time of Disposition: 17:11
--- NOTE | 2020-04-14 15:11 | XR ---
EXAMINATION TYPE: XR soft tissue neck DATE OF EXAM: 04/14/2020 COMPARISON: CT neck January 23, 2020 HISTORY: Throat tightness. TECHNIQUE: 2 view soft tissue neck. FINDINGS: Patent nasopharyngeal and oropharyngeal airway. No suspicious prevertebral soft tissue swel ling. No suspicious narrowing of the subglottic airway. Fullness of the epiglottis is presumed projec tional as there is some obliquity noted. Spine is straightened. No suspicious radiodense foreign body . Overlying hair is present. IMPRESSION: As above.
--- NOTE | 2020-04-14 16:05 | CT ---
EXAMINATION TYPE: CT soft tissue neck w con DATE OF EXAM: 04/14/2020 HISTORY: Throat tightness x 1 week. COMPARISON: CT neck January 23, 2020. Soft tissue x-rays earlier today CT DLP: 418.1 mGycm. Automated Exposure Control for Dose Reduction was Utilized. TECHNIQUE: CT scan of the neck is performed with IV Contrast, patient injected with 100 mL of Isovue 300, axial images are obtained, coronal and sagittal reformatted images are reviewed. FINDINGS: Airway: Some secretions are filling the vallecula and otherwise the airway is patent.. Parotid/submandibular glands: No gross abnormality seen. Carotid/Vascular Structures: No significant abnormality. Osseous Structures: Levoconvex scoliosis or curvature centered upper thoracic spine . Other: No suspicious greater than 1 cm neck adenopathy. IMPRESSION: No significant abnormality is seen to account for patient's symptoms of throat tightness .
[2020-04-14 16:39] LABS: ALT 38 U/L (4-34); AST 37 U/L (14-36); African American GFR (CKD) >90 (>60 ml/min/1.73 sqM); Albumin 4.2 g/dL (3.5-5.0); Alkaline Phosphatase 57 U/L (38-126); Anion Gap 8 mmol/L; Blood Urea Nitrogen 7 mg/dL (7-17); Calcium 9.4 mg/dL (8.4-10.2); Carbon Dioxide 23 mmol/L (22-30); Chloride 104 mmol/L (98-107); Glucose 98 mg/dL (74-99); Non-African American GFR(CKD) 84 (>60 ml/min/1.73 sqM); Sodium 135 mmol/L (137-145); Total Bilirubin 0.6 mg/dL (0.2-1.3); Total Protein 7.2 g/dL (6.3-8.2)
[2020-04-14 16:41] LABS: Potassium 4.5 mmol/L (3.5-5.1)
[2020-04-14 17:04] LABS: Basophils # (A) 0.1 k/uL (0-0.2); Basophils % (A) 1 %; Eosinophils # (A) 0.3 k/uL (0-0.7); Eosinophils % (A) 3 %; HGB 14.6 gm/dL (11.4-16.0); Lymphocytes # (A) 2.8 k/uL (1.0-4.8); Lymphocytes % (A) 20 %; MCH 29.7 pg (25.0-35.0); MCHC 33.3 g/dL (31.0-37.0); MCV 89.3 fL (80.0-100.0); Monocytes # (A) 0.6 k/uL (0-1.0); Monocytes % (A) 4 %; Neutrophils # (A) 9.8 k/uL (1.3-7.7); Neutrophils % (A) 71 %; Platelet Count 351 k/uL (150-450); RBC 4.92 m/uL (3.80-5.40); RDW 12.3 % (11.5-15.5); WBC 13.8 k/uL (3.8-10.6)
[2020-04-14 17:51] VITALS: BP 134/86; PULSE 72; RESP 16; TEMP 98.9
== END 2020-04-14 17:29 | disposition home or self-care (01) ==
LOC: EC 14:13
DX: J35.8 Other chronic diseases of tonsils and adenoids (principal); D72.829 Elevated white blood cell count, unspecified; I10 Essential (primary) hypertension; G47.30 Sleep apnea, unspecified; Z79.899 Other long term (current) drug therapy; Z99.89 Dependence on other enabling machines and devices
CPT/HCPCS: 36415; 80053; 85025; 70360; 70491; 99284; Q9967

== ENCOUNTER → 2020-04-22 | Outpatient (CLI) | payer MEDICAID ==
--- NOTE | 2020-04-22 07:57 | US ---
EXAMINATION TYPE: US thyroid st tissue head/neck DATE OF EXAM: 04/22/2020 COMPARISON: CLINICAL HISTORY: R13.10 DYSPHAGIA, E03.9 HYPOTHYROID. On thyroid meds. Dysphagia. GLAND SIZE: Right Lobe: 4.7 x 2.0 x 1.3 cm Overall Parenchyma: homogenous Left Lobe: 4.2 x 2.0 x 1.6 cm Overall Parenchyma: homogeneous Isthmus Thickness: 0.4 cm NODULES RIGHT: # of nodules measured on right: 1 1. 0.3 X 0.3 x 0.2 cm mixed nodule at the mid lateral pole with well-defined margins. This nodule is wider than tall and shows no intranodular vascularity. Prior size: no prior LEFT: # of nodules measured on left: 2 1. 0.7 X 0.5 x 0.5 cm cystic nodule at the lower pole with well-defined margins. This nodule is wi de as tall and shows no intranodular vascularity. Prior size: no prior 2. 0.4 x 0.3 x 0.4 cm mixed nodule at the lower pole with well-defined margins. This nodule is tall er than wide and shows intranodular vascularity. Prior size: no prior ISTHMUS: # of nodules measured in the isthmus: 0 Bilateral neck scanned, no evidence of lymphadenopathy. IMPRESSION: Nonspecific subcentimeter thyroid nodularity.
[2020-04-22 11:08] LABS: Thyroid Peroxidase Antibodies <28.0 U/mL (0.0-60.0)
--- NOTE | 2020-04-22 11:34 | FL ---
ESOPHOGRAM. HISTORY: Dysphagia Esophagram was performed per the air contrast technique. The patient swallowed barium and effervesce nt crystals without difficulty or delay. Esophageal peristalsis and motility appear to be within normal limits. There is no evidence for filling defect, mass or diverticulum. No hiatal hernia seen. Subsequently single contrast cervical esophagram was performed which fails demonstrate evidence for a spiration penetration or mass. IMPRESSION: Unremarkable study.
== END | disposition home or self-care (01) ==
LOC: RADUSWWP 07:00
PROVIDERS: ATTEND Otolaryngology
DX: E04.1 Nontoxic single thyroid nodule (principal); R13.10 Dysphagia, unspecified
CPT/HCPCS: 74220; 76536; 84443; 86376; 86800

== ENCOUNTER 2020-05-23 07:36 | Day surgery (SDC) | payer MEDICAID ==
[2020-05-21 11:46] VITALS: BMI 37.4
[~2020-05-23 07:36] MED LIST: LACTATED RINGERS 1,000 ML IV SCH; LIDOCAINE 1% (10MG/ML) FOR IV START INTRADERMA PRN
[2020-05-23 08:06] VITALS: TEMP 98
[2020-05-23] MEDS ORDERED: PROPOFOL 10 MG/ML 20 ML VIAL IV ONE (08:39)
[2020-05-23] MEDS ORDERED: LIDOCAINE 1% INJ 10MG/ML (20 ML MDV) ONE (08:39)
--- NOTE | 2020-05-23 08:52 | P.GSHP ---
History of Present Illness H&P Date: 05/23/20 Chief Complaint: GERD 30-year-old female who presents today for EGD. She's had issues with GERD. She states she feels has a lump in her throat. Past Medical History Past Medical History: Asthma, Chest Pain / Angina, Hypertension, Sleep Apnea/CPAP/BIPAP, Thyroid Disorder Additional Past Medical History / Comment(s): Tachycardia, hx of chest pain one time, states was related to anxiety. States has not had any SOB or wheezing for a long time. Does not use her CPAP @ this time. History of Any Multi-Drug Resistant Organisms: None Reported Past Surgical History: No Surgical Hx Reported Past Anesthesia/Blood Transfusion Reactions: No Reported Reaction Additional Past Anesthesia/Blood Transfusion Reaction / Comment(s): Has never had anesthesia but is very anxious to have this done. Smoking Status: Never smoker - Past Family History Father Family Medical History: Diabetes Mellitus, Hypertension Mother Family Medical History: No Reported History Medications and Allergies Home Medications Medication Instructions Recorded Confirmed Type Levothyroxine Sodium [Synthroid] 100 mcg PO DAILY@0630 tab 12/11/18 05/23/20 Rx Albuterol Sulfate [Proair Hfa] 1 - 2 puff INHALATION RT-QID PRN 01/22/20 05/23/20 History Metoprolol Succinate (ER) [Toprol 25 mg PO DAILY 01/22/20 05/21/20 History Xl] Allergies Allergy/AdvReac Type Severity Reaction Status Date / Time amlodipine [From [facility]] Allergy anxiety Verified 05/23/20 08:07 latex Allergy Rash/Hives Verified 05/23/20 08:07 Surgical - Exam Vital Signs Temp Pulse Resp BP Pulse Ox 98 F 98 18 154/90 100 05/23/20 08:03 05/23/20 08:03 05/23/20 08:03 05/23/20 08:03 05/23/20 08:03 - General well developed, well nourished, no distress - Eyes PERRL - ENT normal pinna - Neck no masses - Respiratory normal expansion - Cardiovascular Rhythm: regular - Abdomen Abdomen: soft, non tender Assessment and Plan Assessment: GERD. We'll perform EGD.
--- NOTE | 2020-05-23 08:57 | P.OP ---
Date of Procedure: 05/23/20 Preoperative Diagnosis: GERD Postoperative Diagnosis: Gastritis Procedure(s) Performed: EGD Anesthesia: MAC Surgeon: Adam Mac Pathology: other (Stomach) Condition: stable Disposition: PACU Description of Procedure: Patient's placed on the endoscopy table in the lateral position. She received IV sedation. The gastroscope placed oropharynx and passed in the esophagus stomach. Scope was then placed through the pylorus. First and second portion of the duodenum appeared normal. Scope was then brought back the antrum and this appeared mildly inflamed. A biopsies performed. Scope was unretroflexed and remainder of the stomach appeared normal. There was no significant hiatal hernia. The GE junction was at 40 cm. The distal esophagus. Normal. The proximal esophagus appeared normal. Scope was then withdrawn from patient.
[2020-05-23 09:17] VITALS: BP 130/90; PULSE 69; RESP 16
== END 2020-05-23 09:55 | disposition home or self-care (01) ==
LOC: ORWHC2ENDO 07:36
PROVIDERS: ATTEND Surgery
DX: K29.50 Unspecified chronic gastritis without bleeding (principal); K21.9 Gastro-esophageal reflux disease without esophagitis; J45.909 Unspecified asthma, uncomplicated; I10 Essential (primary) hypertension; G47.33 Obstructive sleep apnea (adult) (pediatric); Z99.89 Dependence on other enabling machines and devices; Z91.19 Patient's noncompliance with other medical treatment and regimen; E07.9 Disorder of thyroid, unspecified; R00.0 Tachycardia, unspecified; Z83.3 Family history of diabetes mellitus; Z82.49 Family history of ischemic heart disease and other diseases of the circulatory system; Z82.61 Family history of arthritis; Z82.0 Family history of epilepsy and other diseases of the nervous system; Z79.890 Hormone replacement therapy; Z79.1 Long term (current) use of non-steroidal anti-inflammatories (NSAID); Z79.3 Long term (current) use of hormonal contraceptives; Z79.51 Long term (current) use of inhaled steroids; Z79.899 Other long term (current) drug therapy; Z91.040 Latex allergy status; Z88.8 Allergy status to other drugs, medicaments and biological substances; Z91.048 Other nonmedicinal substance allergy status
CPT/HCPCS: 81025; 88305; 43239; J2001; J2704

== ENCOUNTER → 2020-06-27 | Outpatient (CLI) | payer MEDICAID ==
--- NOTE | 2020-06-27 10:38 | NM ---
Nuclear medicine hepatobiliary scan. HISTORY: Pain. DOSAGE: The patient received 8 ounces of ensure plus and 5 mCi of Technetium 99m Choletec. FINDINGS: There is normal hepatic extraction. The gallbladder is not definitively seen and 2.5 hours .. There is biliary to bowel clearance by 30 minutes. Ejection fraction is 89%. IMPRESSION: 1. Delayed filling of the gallbladder correlate for cholecystitis.
== END | disposition home or self-care (01) ==
LOC: RADNMMAIN 06:49
PROVIDERS: ATTEND Surgery
DX: K82.8 Other specified diseases of gallbladder (principal)
CPT/HCPCS: 78227; A9537; J2805

== ENCOUNTER 2020-07-12 08:06 | Day surgery (SDC) | payer MEDICAID ==
[2020-07-09 15:56] VITALS: BMI 37.8
[~2020-07-12 08:06] MED LIST changes: +ACETAMINOPHEN TAB 500 MG TAB PO PRN; +HEPARIN SODIUM,PORCINE 5,000 UNIT/ML 1 ML VIAL SQ PRN; -LACTATED RINGERS 1,000 ML IV SCH; -LIDOCAINE 1% (10MG/ML) FOR IV START INTRADERMA PRN
[2020-07-12] MEDS ORDERED: LACTATED RINGERS 1,000 ML IV ONE ×4 (08:31→12:30)
[2020-07-12] MEDS ORDERED: ONDANSETRON 4 MG/2 ML VIAL ONE (08:33)
[2020-07-12] MEDS ORDERED: DEXAMETHASONE SOD PHOSPHATE 4 MG/ML 1 ML VIAL IV ONE (08:39)
--- NOTE | 2020-07-12 10:14 | P.GSHP ---
History of Present Illness H&P Date: 07/12/20 Chief Complaint: Right upper quadrant pain This a 30-year-old female who presents today for laparoscopic cholecystectomy. Patient with right quadrant pain. Her recent HIDA scan shows an abnormal ejection fraction. Past Medical History Past Medical History: Asthma, Chest Pain / Angina, Hypertension, Sleep Apnea/CPAP/BIPAP, Thyroid Disorder Additional Past Medical History / Comment(s): Tachycardia, hx of chest pain one time, states was related to anxiety. States has not had any SOB or wheezing for a long time. Does not use her CPAP @ this time. GALLBLADDER DISORDER History of Any Multi-Drug Resistant Organisms: None Reported Past Surgical History: No Surgical Hx Reported Additional Past Surgical History / Comment(s): EGD Past Anesthesia/Blood Transfusion Reactions: No Reported Reaction Additional Past Anesthesia/Blood Transfusion Reaction / Comment(s): Has never had anesthesia but is very anxious to have this done. Smoking Status: Never smoker - Past Family History Father Family Medical History: Diabetes Mellitus, Hypertension Mother Family Medical History: No Reported History Medications and Allergies Home Medications Medication Instructions Recorded Confirmed Type Levothyroxine Sodium [Synthroid] 100 mcg PO DAILY@0630 tab 12/11/18 07/09/20 Rx Albuterol Sulfate [Proair Hfa] 1 - 2 puff INHALATION RT-QID PRN 01/22/20 07/09/20 History Metoprolol Succinate (ER) [Toprol 25 mg PO DAILY 01/22/20 07/09/20 History Xl] Allergies Allergy/AdvReac Type Severity Reaction Status Date / Time amlodipine [From [facility]] Allergy anxiety Verified 07/09/20 15:46 latex Allergy Rash/Hives Verified 07/09/20 15:46 Surgical - Exam Vital Signs Temp Pulse Resp BP Pulse Ox 98.4 F 98 16 167/90 100 07/12/20 08:22 07/12/20 08:22 07/12/20 08:22 07/12/20 08:22 07/12/20 08:22 - General well developed, well nourished, no distress - Eyes PERRL - ENT normal pinna - Neck no masses - Respiratory normal expansion - Cardiovascular Rhythm: regular - Abdomen Abdomen: soft, non tender Assessment and Plan Assessment: Right upper quadrant pain Chronic cholecystitis We'll perform laparoscopic cholecystectomy
[2020-07-12] MEDS ORDERED: PROPOFOL 10 MG/ML 20 ML VIAL IV ONE (10:29)
[2020-07-12] MEDS ORDERED: ROCURONIUM 10 MG/ML (10 ML VIAL) IV ONE (10:29)
[2020-07-12] MEDS ORDERED: fentaNYL (PF) 50 MCG/ML 2 ML AMP ONE (10:29)
[2020-07-12] MEDS ORDERED: SUCCINYLCHOLINE CHLORIDE 100 MG/5 ML SYR IV ONE (10:29)
[2020-07-12] MEDS ORDERED: GLYCOPYRROLATE 0.2 MG/ML 2 ML VIAL ONE (10:29)
[2020-07-12] MEDS ORDERED: MIDAZOLAM 2 MG/2 ML VIAL ONE (10:29)
[2020-07-12] MEDS ORDERED: KETOROLAC 15 MG/ML 1 ML VIAL ONE (10:29)
[2020-07-12] MEDS ORDERED: NEOSTIGMINE 1 MG/ML 10 ML VIAL ONE (10:29)
[2020-07-12] MEDS ORDERED: BUPIVACAINE (PF) 0.25% 30 ML VIAL SQ ONE (10:56)
--- NOTE | 2020-07-12 11:23 | P.OP ---
Date of Procedure: 07/12/20 Preoperative Diagnosis: Cholecystitis Postoperative Diagnosis: Cholecystitis Procedure(s) Performed: Laparoscopic cholecystectomy Anesthesia: SHANNAN Surgeon: Adam Mac Estimated Blood Loss (ml): 5 Pathology: other (Gallbladder) Condition: stable Disposition: PACU Description of Procedure: The patient was placed on the operating table. The patient received a general endotracheal tube anesthesia. The patients abdomen was prepped and draped in the usual sterile fashion. Through an infraumbilical stab incision, the fascia of the anterior abdominal wall was grasped with a pair of Kochers and then the Veress needle was placed in the peritoneal cavity. Position of the Veress needle was confirmed with positive drop test. The abdomen was then insufflated. After adequate insufflation, the 10 mm trocar was placed in the peritoneal cavity. Following this the laparoscope was placed in the peritoneal cavity. The patient was placed in the head-up, right side up position and then a 5 mm trocar was placed in the right lateral and right subcostal position under direct visualization. A 8 mm trocar was placed in the epigastric position. The gallbladder was grasped in the fundus and infundibulum. Traction on the gallbladder was placed in the lateral and the cephalad positions. The triangle of Calot was visualized.. The cystic duct was bluntly dissected until the union of the cystic duct and common bile duct was seen. A critical view of safety was achieved. The cystic duct was then divided and sealed with the Harmonic scissors. A PDS Endoloop was then placed throughout the cystic duct stump. The cystic artery divided and sealed with the Harmonic scissors. The gallbladder was then removed from the liver bed using Harmonic scissors. The gallbladder was then extracted through the epigastric port site. Operative field was checked for any bleeding spots and Harmonic scissors was used to coagulate the liver bed. The abdomen was irrigated. The trocars were removed. The skin was closed using interrupted 3-0 Vicryl suture. Dermabond dressing were applied. The patient tolerated the procedure well.
[2020-07-12 11:42] VITALS: TEMP 98.1
[2020-07-12] MEDS ORDERED: HYDROmorphone 0.5 MG/0.5 ML SYRINGE IVP ONE ×2 (11:46→11:51)
[2020-07-12 12:57] VITALS: BP 122/74; PULSE 67; RESP 18
== END 2020-07-12 13:19 | disposition home or self-care (01) ==
LOC: OR 08:06
PROVIDERS: ATTEND Surgery
DX: K81.1 Chronic cholecystitis (principal); E66.9 Obesity, unspecified; Z68.37 Body mass index [BMI] 37.0-37.9, adult; K21.9 Gastro-esophageal reflux disease without esophagitis; R00.0 Tachycardia, unspecified; G47.33 Obstructive sleep apnea (adult) (pediatric); Z99.89 Dependence on other enabling machines and devices; I10 Essential (primary) hypertension; E03.9 Hypothyroidism, unspecified; F41.9 Anxiety disorder, unspecified; Z79.899 Other long term (current) drug therapy; Z91.040 Latex allergy status; Z79.890 Hormone replacement therapy; Z88.8 Allergy status to other drugs, medicaments and biological substances; J45.909 Unspecified asthma, uncomplicated
CPT/HCPCS: 81025; 88304; 47562; J2250; J1644; J1100; J2710; J0690; J2405; J3010; J1885; J0330; J2704; J1170

== ENCOUNTER → 2020-08-15 | Outpatient (CLI) | payer MEDICAID ==
[2020-08-16 10:00] LABS: C Reactive Protein <0.4 mg/dL (0.0-0.8); Rheumatoid Factor, Qnt <4 IU/mL (0-15)
== END | disposition home or self-care (01) ==
LOC: LABWHC1 13:19
PROVIDERS: ATTEND Family Medicine
DX: M35.9 Systemic involvement of connective tissue, unspecified (principal)
CPT/HCPCS: 36415; 85652; 86038; 86140; 86431

== ENCOUNTER → 2020-10-29 | Outpatient (CLI) | payer MEDICAID ==
[2020-10-29 18:32] LABS: Folate, Serum 18.8 ng/mL
[2020-10-29 18:33] LABS: African American GFR (CKD) 98.1 (60.0-200.0); BUN/Creat Ratio 11.11 Ratio (12.00-20.00); C Reactive Protein <0.4 mg/dL (0.0-0.8); Calcium 9.7 mg/dL (8.7-10.3); Carbon Dioxide 27.3 mmol/L (21.6-31.8); Chloride 104 mmol/L (96-109); Glucose 118 mg/dL (70-110); Non-African American GFR(CKD) 84.6 (60.0-200.0); Potassium 4.1 mmol/L (3.5-5.5); Sodium 141 mmol/L (135-145)
[2020-10-30 13:52] LABS: APTT 40 Sec(s) (<43); Dilute Russell Viper Venom 39 Sec(s) (<44)
== END | disposition home or self-care (01) ==
LOC: LABWHC1 08:37
PROVIDERS: ATTEND Ophthalmology
DX: H47.293 Other optic atrophy, bilateral (principal)
CPT/HCPCS: 36415; 80048; 82607; 82746; 85549; 85613; 85652; 85730; 86038; 86140

== ENCOUNTER → 2020-10-29 | Outpatient (CLI) | payer MEDICAID ==
--- NOTE | 2020-10-29 12:14 | US ---
EXAMINATION TYPE: US thyroid st tissue head/neck DATE OF EXAM: 10/29/2020 COMPARISON: US 04/22/20 CLINICAL HISTORY: E04.1 Thyroid Nodule. Follow up GLAND SIZE: Right Lobe: 4.7 x 1.8 x 1.6 cm Overall Parenchyma: homogenous Left Lobe: 4.2 x 1.7 x 1.5 cm Overall Parenchyma: homogeneous Isthmus Thickness: 0.4 cm NODULES RIGHT: # of nodules measured on right: 1 1. 0.3 X 0.2 x 0.2 cm, mid lateral, cystic or almost completely cystic, hypoechoic nodule, which is wider than tall, with smooth margins, without echogenic foci. Prior size: 0.3 x 0.3 x 0.2 cm LEFT: # of nodules measured on left: 2 1. 0.5 X 0.5 x 0.3 cm, lower mid, mixed cystic and solid, hypoechoic nodule, which is wider than ta ll, with ill-defined margins, without echogenic foci. Prior size: 0.7 x 0.5 x 0.5 cm 2. 0.5 X 0.4 x 0.3 cm, lower lateral, cystic or almost completely cystic, hypoechoic nodule, which is wider than tall, with smooth margins, without echogenic foci. Prior size: 0.4 x 0.3 x 0.4 cm ISTHMUS: # of nodules measured in the isthmus: 0 Bilateral neck scanned, no evidence of lymphadenopathy. IMPRESSION: Stable subcentimeter bilateral thyroid nodules.
== END | disposition home or self-care (01) ==
LOC: RADUSWWP 08:39
PROVIDERS: ATTEND Otolaryngology
DX: E04.2 Nontoxic multinodular goiter (principal)
CPT/HCPCS: 76536

== ENCOUNTER 2021-02-12 08:30 | Emergency (ER) | payer MEDICAID ==
[2021-02-12 08:39] VITALS: RESP 18; TEMP 97.9
[2021-02-12] MEDS ORDERED: SODIUM CHLORIDE 0.9% 500 ML 500 ML IV STA (08:55)
[2021-02-12 09:47] LABS: Basophils # (A) 0.1 k/uL (0-0.2); Basophils % (A) 1 %; Eosinophils # (A) 0.3 k/uL (0-0.7); Eosinophils % (A) 3 %; HCT 43.7 % (34.0-46.0); HGB 14.5 gm/dL (11.4-16.0); Lymphocytes # (A) 2.3 k/uL (1.0-4.8); Lymphocytes % (A) 26 %; MCH 30.9 pg (25.0-35.0); MCHC 33.2 g/dL (31.0-37.0); MCV 92.8 fL (80.0-100.0); Mean Platelet Volume 8.3; Monocytes # (A) 0.4 k/uL (0-1.0); Monocytes % (A) 5 %; Neutrophils # (A) 5.4 k/uL (1.3-7.7); Neutrophils % (A) 63 %; Platelet Count 261 k/uL (150-450); RBC 4.71 m/uL (3.80-5.40); RDW 13.8 % (11.5-15.5); WBC 8.6 k/uL (3.8-10.6)
--- NOTE | 2021-02-12 09:52 | ED ---
General Adult HPI - General Chief complaint: Abdominal Pain Stated complaint: left side abd & back pain Time Seen by Provider: 02/12/21 08:40 Source: patient, RN notes reviewed, old records reviewed Mode of arrival: ambulatory Limitations: no limitations - History of Present Illness Initial comments: This is a 30-year-old female presents emergency Department complaining of left upper abdominal pain. Patient states ongoing for 2 days. Patient states she's had no nausea or vomiting. Patient states movement doesn't make it worse per patient denies any chest pain difficulty breathing or shortness of breath per patient denies any rib pain. Patient denies any diarrhea. Patient states the pain is been constant and getting a little bit worse. Patient states the pain is now radiating around to her back and it is just below the ribs in the front. Patient is not had similar symptoms in the past. Patient states she has a cholecystectomy. - Related Data Home Medications Medication Instructions Recorded Confirmed Albuterol Sulfate [Proair Hfa] 1 - 2 puff INHALATION RT-QID PRN 01/22/20 02/12/21 Metoprolol Succinate (ER) [Toprol 50 mg PO DAILY 01/22/20 02/12/21 Xl] Acetaminophen Tab [Tylenol] 650 mg PO Q6H PRN 02/12/21 02/12/21 Multivitamins, Thera [Multivitamin 1 tab PO DAILY 02/12/21 02/12/21 (formulary)] hydroCHLOROthiazide [Hydrodiuril] 12.5 mg PO DAILY 02/12/21 02/12/21 Previous Rx's Medication Instructions Recorded Levothyroxine Sodium [Synthroid] 100 mcg PO DAILY@0630 tab 12/11/18 Allergies Allergy/AdvReac Type Severity Reaction Status Date / Time latex Allergy Rash/Hives Verified 02/12/21 09:53 amlodipine [From Norvasc] AdvReac anxiety Verified 02/12/21 09:53 Review of Systems ROS Statement: Those systems with pertinent positive or pertinent negative responses have been documented in the HPI. ROS Other: All systems not noted in ROS Statement are negative. Past Medical History Past Medical History: Asthma, Chest Pain / Angina, Hypertension, Sleep Apnea/CPAP/BIPAP, Thyroid Disorder Additional Past Medical History / Comment(s): Tachycardia, hx of chest pain one time, states was related to anxiety. States has not had any SOB or wheezing for a long time. Does not use her CPAP @ this time. GALLBLADDER DISORDER History of Any Multi-Drug Resistant Organisms: None Reported Past Surgical History: Cholecystectomy Additional Past Surgical History / Comment(s): EGD Past Anesthesia/Blood Transfusion Reactions: No Reported Reaction Additional Past Anesthesia/Blood Transfusion Reaction / Comment(s): Has never had anesthesia but is very anxious to have this done. Past Psychological History: No Psychological Hx Reported Smoking Status: Never smoker Past Alcohol Use History: None Reported Past Drug Use History: None Reported - Past Family History Father Family Medical History: Diabetes Mellitus, Hypertension Mother Family Medical History: No Reported History General Exam - General Exam Comments Initial Comments: GENERAL: Patient is well-developed and well-nourished. Patient is nontoxic and well- hydrated and is in mild distress. ENT: Neck is soft and supple. No significant lymphadenopathy is noted. Oropharynx is clear. Moist mucous membranes. Neck has full range of motion without eliciting any pain. EYES: The sclera were anicteric and conjunctiva were pink and moist. Extraocular movements were intact and pupils were equal round and reactive to light. Eyelids were unremarkable. PULMONARY: Unlabored respirations. Good breath sounds bilaterally. No audible rales rhonchi or wheezing was noted. CARDIOVASCULAR: There is a regular rate and rhythm without any murmurs gallops or rubs. ABDOMEN: Patient is left upper quadrant tenderness just under the ribs. Patient has no rib tenderness in all patient has no CVA tenderness SKIN: Skin is clear with no lesions or rashes and otherwise unremarkable. NEUROLOGIC: Patient is alert and oriented x3. Cranial nerves II through XII are grossly intact. Motor and sensory are also intact. Normal speech, volume and content. Symmetrical smile. MUSCULOSKELETAL: Normal extremities with adequate strength and full range of motion. No lower extremity swelling or edema. No calf tenderness. LYMPHATICS: No significant lymphadenopathy is noted PSYCHIATRIC: Normal psychiatric evaluation. Limitations: no limitations Course Vital Signs 02/12/21 02/12/21 02/12/21 08:36 09:39 10:00 Temperature 97.9 F Pulse Rate 87 72 Respiratory 18 18 18 Rate Blood Pressure 158/94 124/76 O2 Sat by Pulse 100 Oximetry 02/12/21 02/12/21 11:00 12:00 Temperature Pulse Rate 76 74 Respiratory 18 18 Rate Blood Pressure 125/87 127/88 O2 Sat by Pulse 99 97 Oximetry Medical Decision Making - Medical Decision Making Computed tomography scan of the abdomen pelvis show no acute abnormality. GI cocktail didn't improve the patient's symptoms. - Lab Data Result diagrams: 02/12/21 09:22 02/12/21 09:22 Lab Results 02/12/21 02/12/21 02/12/21 Range/Units 09:22 09:22 09:22 WBC 8.6 (3.8-10.6) k/uL RBC 4.71 (3.80-5.40) m/uL Hgb 14.5 (11.4-16.0) gm/dL Hct 43.7 (34.0-46.0) % MCV 92.8 (80.0-100.0) fL MCH 30.9 (25.0-35.0) pg MCHC 33.2 (31.0-37.0) g/dL RDW 13.8 (11.5-15.5) % Plt Count 261 (150-450) k/uL MPV 8.3 Neutrophils % 63 % Lymphocytes % 26 % Monocytes % 5 % Eosinophils % 3 % Basophils % 1 % Neutrophils # 5.4 (1.3-7.7) k/uL Lymphocytes # 2.3 (1.0-4.8) k/uL Monocytes # 0.4 (0-1.0) k/uL Eosinophils # 0.3 (0-0.7) k/uL Basophils # 0.1 (0-0.2) k/uL Sodium 139 (137-145) mmol/L Potassium 4.3 (3.5-5.1) mmol/L Chloride 107 (98-107) mmol/L Carbon Dioxide 21 L (22-30) mmol/L Anion Gap 11 mmol/L BUN 10 (7-17) mg/dL Creatinine 0.84 (0.52-1.04) mg/dL Est GFR (CKD-EPI)AfAm >90 (>60 ml/min/1.73 sqM) Est GFR (CKD-EPI)NonAf >90 (>60 ml/min/1.73 sqM) Glucose 105 H (74-99) mg/dL Plasma Lactic Acid Spencer (0.7-2.0) mmol/L Calcium 9.4 (8.4-10.2) mg/dL Total Bilirubin 0.6 (0.2-1.3) mg/dL AST 53 H (14-36) U/L ALT 62 H (4-34) U/L Alkaline Phosphatase 48 (38-126) U/L Total Protein 7.5 (6.3-8.2) g/dL Albumin 4.5 (3.5-5.0) g/dL Amylase 80 (30-110) U/L Lipase 119 (23-300) U/L Urine Color Colorless Urine Appearance Clear (Clear) Urine pH 6.0 (5.0-8.0) Ur Specific [place] 1.005 (1.001-1.035) Urine Protein Negative (Negative) Urine Glucose (UA) Negative (Negative) Urine Ketones Negative (Negative) Urine Blood Negative (Negative) Urine Nitrite Negative (Negative) Urine Bilirubin Negative (Negative) Urine Urobilinogen <2.0 (<2.0) mg/dL Ur Leukocyte Esterase Small H (Negative) Urine RBC <1 (0-5) /hpf Urine WBC 3 (0-5) /hpf Ur Squamous Epith Cells 1 (0-4) /hpf Urine Bacteria Rare H (None) /hpf 02/12/21 Range/Units 09:22 WBC (3.8-10.6) k/uL RBC (3.80-5.40) m/uL Hgb (11.4-16.0) gm/dL Hct (34.0-46.0) % MCV (80.0-100.0) fL MCH (25.0-35.0) pg MCHC (31.0-37.0) g/dL RDW (11.5-15.5) % Plt Count (150-450) k/uL MPV Neutrophils % % Lymphocytes % % Monocytes % % Eosinophils % % Basophils % % Neutrophils # (1.3-7.7) k/uL Lymphocytes # (1.0-4.8) k/uL Monocytes # (0-1.0) k/uL Eosinophils # (0-0.7) k/uL Basophils # (0-0.2) k/uL Sodium (137-145) mmol/L Potassium (3.5-5.1) mmol/L Chloride (98-107) mmol/L Carbon Dioxide (22-30) mmol/L Anion Gap mmol/L BUN (7-17) mg/dL Creatinine (0.52-1.04) mg/dL Est GFR (CKD-EPI)AfAm (>60 ml/min/1.73 sqM) Est GFR (CKD-EPI)NonAf (>60 ml/min/1.73 sqM) Glucose (74-99) mg/dL Plasma Lactic Acid Spencer 1.1 (0.7-2.0) mmol/L Calcium (8.4-10.2) mg/dL Total Bilirubin (0.2-1.3) mg/dL AST (14-36) U/L ALT (4-34) U/L Alkaline Phosphatase (38-126) U/L Total Protein (6.3-8.2) g/dL Albumin (3.5-5.0) g/dL Amylase (30-110) U/L Lipase (23-300) U/L Urine Color Urine Appearance (Clear) Urine pH (5.0-8.0) Ur Specific [place] (1.001-1.035) Urine Protein (Negative) Urine Glucose (UA) (Negative) Urine Ketones (Negative) Urine Blood (Negative) Urine Nitrite (Negative) Urine Bilirubin (Negative) Urine Urobilinogen (<2.0) mg/dL Ur Leukocyte Esterase (Negative) Urine RBC (0-5) /hpf Urine WBC (0-5) /hpf Ur Squamous Epith Cells (0-4) /hpf Urine Bacteria (None) /hpf Disposition Clinical Impression: Abdominal pain Disposition: HOME SELF-CARE Condition: Good Instructions (If sedation given, give patient instructions): Abdominal Pain (ED) Is patient prescribed a controlled substance at d/c from ED?: No Referrals: Brenda Mccormick MD [Primary Care Provider] - 1-2 days Time of Disposition: 12:18
[2021-02-12 10:18] LABS: Appearance,Urine Clear (Clear); Bacteria,Urine Rare /hpf; Bilirubin,Urine Negative (Negative); Blood,Urine Negative (Negative); Color,Urine Colorless; Glucose,Urine (UA) Negative (Negative); Ketones,Urine Negative (Negative); Leukocyte Esterase,Urine Small (Negative); Nitrite,Urine Negative (Negative); Protein,Urine Negative (Negative); RBC,Urine <1 /hpf (0-5); Specific Gravity,Urine 1.005 (1.001-1.035); Squamous Epithelial Cell,Urine 1 /hpf (0-4); Urobilinogen,Urine <2.0 mg/dL (<2.0); WBC,Urine 3 /hpf (0-5)
--- NOTE | 2021-02-12 10:44 | CT ---
EXAMINATION TYPE: CT abdomen pelvis w con DATE OF EXAM: 02/12/2021 COMPARISON: None INDICATION: LUQ pain, nausea DLP: 1686.2 mGycm, Automated exposure control for dose reduction was used. CONTRAST: 100 mL of Isovue 300. Study performed without Oral Contrast TECHNIQUE: Axial images were obtained from above the diaphragm to the pubic rami in the axial plane a t 5 mm thick sections. Reconstructed images are reviewed on the computer in the coronal plane. FINDINGS: Limited CT sections are obtained the lung bases. The lung bases are clear. CT ABDOMEN: Liver: Moderate diffuse fatty infiltration throughout the liver. Spleen: Normal. Small splenule may be at the splenic hilum. Additional splenule is anterior spleen. Pancreas: Normal Adrenal glands: The adrenal glands are normal. Gallbladder: Absent. Correlate with surgical history. Kidneys: No masses are evident. No hydronephrosis is present. No cysts are present. Delayed images were obtained through the kidneys, which remain unremarkable. Aorta: Normal Inferior vena cava: Normal. CT PELVIS: Loops of bowel within the abdomen and pelvis are normal. Study is without oral contrast limiting bowel evaluation. Appendix: Normal as visualized. Urinary bladder: Normal. Genitourinary structures: Uterus appears normal. Adnexal regions may have follicles and cysts. The la rgest on the left measures 1.7 cm. No free fluid is within the pelvis. Osseous structures: No suspicious lytic or sclerotic lesions. IMPRESSIONS: 1. Left ovarian cyst measuring 1.7 cm. Ovarian cysts can be followed with pelvic ultrasound. 2. Moderate diffuse fatty infiltration of the liver. 3. No suspicious abnormality to account for patient's left upper quadrant pain
[2021-02-12 10:57] LABS: ALT 62 U/L (4-34); African American GFR (CKD) >90 (>60 ml/min/1.73 sqM); Albumin 4.5 g/dL (3.5-5.0); Amylase 80 U/L (30-110); Anion Gap 11 mmol/L; Blood Urea Nitrogen 10 mg/dL (7-17); Calcium 9.4 mg/dL (8.4-10.2); Carbon Dioxide 21 mmol/L (22-30); Chloride 107 mmol/L (98-107); Glucose 105 mg/dL (74-99); Lipase 119 U/L (23-300); Non-African American GFR(CKD) >90 (>60 ml/min/1.73 sqM); Sodium 139 mmol/L (137-145); Total Bilirubin 0.6 mg/dL (0.2-1.3); Total Protein 7.5 g/dL (6.3-8.2)
[2021-02-12 11:06] LABS: AST 53 U/L (14-36); Alkaline Phosphatase 48 U/L (38-126)
[2021-02-12 11:08] LABS: Potassium 4.3 mmol/L (3.5-5.1)
[2021-02-12] MEDS ORDERED: MAG HYDROX/AL HYDROX/SIMETH 30 ML, HYOSCYAMINE ELIXIR 10 ML, LIDOCAINE VISCOUS 2% 10 ML PO STA ×3 (11:40)
[2021-02-12] MEDS ORDERED: KETOROLAC 15 MG/ML 1 ML VIAL IVP STA (11:41)
[2021-02-12 12:16] VITALS: BP 127/88; PULSE 74
== END 2021-02-12 12:28 | disposition home or self-care (01) ==
LOC: EC 08:30
DX: N20.0 Calculus of kidney (principal); E78.5 Hyperlipidemia, unspecified; K21.9 Gastro-esophageal reflux disease without esophagitis; Z87.891 Personal history of nicotine dependence; Z79.899 Other long term (current) drug therapy
CPT/HCPCS: 99284; 96374; 36415; 80053; 82150; 83605; 83690; 85025; 81001; 74177; J1885; Q9967

== ENCOUNTER → 2021-02-21 | Outpatient (CLI) | payer MEDICAID ==
[2021-02-21 21:07] LABS: Protein, Total 7.3 g/dL (6.2-8.2)
== END | disposition home or self-care (01) ==
LOC: LABWHC1 09:01
PROVIDERS: ATTEND Psychiatry & Neurology Pain Medicine
DX: R20.2 Paresthesia of skin (principal); R53.83 Other fatigue
CPT/HCPCS: 36415; 84165; 85652; 86140

== ENCOUNTER → 2021-06-10 | Outpatient (CLI) | payer MEDICAID ==
--- NOTE | 2021-06-11 07:51 | US ---
EXAMINATION TYPE: US thyroid st tissue head/neck DATE OF EXAM: 06/10/2021 COMPARISON: US 1 year prior CLINICAL HISTORY: E04.1 Thyroid nodule. GLAND SIZE: Right Lobe: 4.4 x 1.6 x 1.5 cm Overall Parenchyma: homogenous Left Lobe: 4.4 x 1.5 x 1.6 cm Overall Parenchyma: homogeneous Isthmus Thickness: 0.3 cm NODULES RIGHT: # of nodules measured on right: 0 LEFT: # of nodules measured on left: 1. 0.3 X 0.2 x 0.3 cm, lower, cystic or almost completely cystic, anechoic nodule, which is wider than tall, with ill-defined margins, without echogenic foci. TR 1 Prior size: 0.5 X 0.5 x 0.3 cm ISTHMUS: # of nodules measured in the isthmus: 0 Bilateral neck scanned, no evidence of lymphadenopathy. IMPRESSION: Benign findings 2017 ACR TI-RADS LEVEL: TR-RADS 1 - BENIGN: No FNA *Highest TI-RADS level nodule reported
== END | disposition home or self-care (01) ==
LOC: RADUSWWP 16:29
PROVIDERS: ATTEND Otolaryngology
DX: E04.1 Nontoxic single thyroid nodule (principal)
CPT/HCPCS: 76536

== ENCOUNTER → 2022-09-22 | Outpatient (CLI) | payer MEDICAID ==
--- NOTE | 2022-09-22 09:56 | US ---
EXAMINATION TYPE: US liver DATE OF EXAM: 09/22/2022 COMPARISON: CT 02/12/2021 CLINICAL HISTORY: R68.89 OTHER GENERAL SYMPTOMS AND SIGNS. Abnormal labs. GB removed. TECHNIQUE: Multiple sonographic images of the right upper quadrant are obtained. FINDINGS: EXAM MEASUREMENTS: Liver Length: 19.4 cm CBD: 0.5 cm Right Kidney: 11.1 x 4.8 x 5.9 cm Pancreas: Tail obscured by overlying bowel gas Liver: Increased attenuation, decreased visualization of vessels suggestive of fatty infiltrate. En larged in size. Coarse. Gallbladder: Surgically absent Evidence for sonographic Perez's sign: neg CBD: wnl Right Kidney: No hydronephrosis or masses seen. Prominent dromedary hump visualized. IMPRESSION: 1. Hepatic steatosis. 2. No evidence for acute process.
== END | disposition home or self-care (01) ==
LOC: RADUSWWP 08:50
PROVIDERS: ATTEND Family Medicine
DX: K76.0 Fatty (change of) liver, not elsewhere classified (principal); R68.89 Other general symptoms and signs
CPT/HCPCS: 76705

== ENCOUNTER → 2022-11-27 | Outpatient (CLI) | payer MEDICAID ==
--- NOTE | 2022-11-27 13:58 | US ---
EXAMINATION TYPE: US thyroid st tissue head/neck DATE OF EXAM: 11/27/2022 COMPARISON: US 2020 CLINICAL INDICATION: Female, 32 years old with history of E04.1 NONTOXIC SINGLE THYROID NODULE; GLAND SIZE: Right Lobe: 5.5 x 1.6 x 2.1 cm Overall Parenchyma: homogenous Left Lobe: 4.8 x 1.5 x 1.8 cm Overall Parenchyma: homogeneous Isthmus Thickness: 0.4 cm NODULES RIGHT: # of nodules measured on right: 0 LEFT: # of nodules measured on left: 0 ISTHMUS: # of nodules measured in the isthmus: 0 Bilateral neck scanned, no evidence of lymphadenopathy. IMPRESSION: Unremarkable thyroid
== END | disposition home or self-care (01) ==
LOC: RADUSWWP 13:34
PROVIDERS: ATTEND Otolaryngology
DX: E04.1 Nontoxic single thyroid nodule (principal)
CPT/HCPCS: 76536

== ENCOUNTER → 2023-05-04 | Outpatient (CLI) | payer MEDICAID ==
[2023-05-04 13:38] LABS: Basophils # (A) 0.07 X 10*3/uL (0.00-0.10); Basophils % (A) 0.7 %; Eosinophils # (A) 0.39 X 10*3/uL (0.04-0.35); Eosinophils % (A) 3.8 %; HCT 46.2 % (37.2-46.3); HGB 15.6 g/dL (12.0-15.0); Lymphocytes # (A) 3.45 X 10*3/uL (0.90-5.00); Lymphocytes % (A) 33.5 %; MCH 29.9 pg (27.0-32.0); MCHC 33.8 g/dL (32.0-37.0); MCV 88.7 FL (80.0-97.0); Mean Platelet Volume 10.2 FL (9.5-12.2); Monocytes # (A) 0.64 X 10*3/uL (0.20-1.00); Monocytes % (A) 6.2 %; NRBC Per 100 WBC 0 X 10*3/uL (0.00-0.01); Neutrophils % (A) 55.4 %; Platelet Count 323 X 10*3/uL (140-440); RBC 5.21 X 10*6/uL (4.10-5.20); RDW 12.2 % (11.5-14.5); WBC 10.29 X 10*3/uL (4.50-10.00)
[2023-05-04 13:59] LABS: % Iron Saturation 29.32 (12.00-45.00); ALT 63 U/L (8-44); AST 40 U/L (13-35); Albumin 4.7 g/dL (3.8-4.9); Albumin/Globulin Ratio 1.81 Ratio (1.60-3.17); Alkaline Phosphatase 63 U/L (41-126); Calcium 9.9 mg/dL (8.7-10.3); Carbon Dioxide 23.1 mmol/L (21.6-31.8); Chloride 104 mmol/L (96-109); Ferritin 85.5 ng/mL (10.0-291.0); Globulin 2.6 g/dL (1.6-3.3); Glucose 104 mg/dL (70-110); Iron 107 UG/DL (50-170); Potassium 4.5 mmol/L (3.5-5.5); Sodium 140 mmol/L (135-145); Total Bilirubin 0.4 mg/dL (0.3-1.2); Total Iron Binding Capacity 365 UG/DL (228-460); Total Protein 7.3 g/dL (6.2-8.2)
[2023-05-04 15:40] LABS: Hepatitis C IgG Antibody Nonreactive
[2023-05-04 20:45] LABS: Hepatitis B Surface AB- Quant 66.1 mIU/mL
[2023-05-04 21:16] LABS: Albumin 4.5 g/dL (3.8-4.9)
[2023-05-06 11:27] LABS: Gamma Globulin 1.02 g/dL (0.70-1.50)
== END | disposition home or self-care (01) ==
LOC: LABWHC1 08:07
PROVIDERS: ATTEND Internal Medicine Gastroenterology
DX: K76.0 Fatty (change of) liver, not elsewhere classified (principal); R94.5 Abnormal results of liver function studies
CPT/HCPCS: 36415; 80053; 82103; 82390; 82728; 83516; 83540; 83550; 84165; 85025; 86038; 86706; 86803

== ENCOUNTER → 2023-11-03 | Outpatient (CLI) | payer BC ==
[2023-11-03 14:23] LABS: Basophils # (A) 0.07 X 10*3/uL (0.00-0.10); Basophils % (A) 0.8 %; Eosinophils # (A) 0.56 X 10*3/uL (0.04-0.35); Eosinophils % (A) 6.1 %; HCT 43.5 % (37.2-46.3); HGB 14.5 g/dL (12.0-15.0); Lymphocytes # (A) 3.32 X 10*3/uL (0.90-5.00); Lymphocytes % (A) 36.4 %; MCH 29.7 pg (27.0-32.0); MCHC 33.3 g/dL (32.0-37.0); MCV 89.1 FL (80.0-97.0); Mean Platelet Volume 9.8 FL (9.5-12.2); Monocytes % (A) 6.6 %; NRBC Per 100 WBC 0 X 10*3/uL (0.00-0.01); Neutrophils # (A) 4.55 X 10*3/uL (1.80-7.70); Neutrophils % (A) 49.8 %; Platelet Count 312 X 10*3/uL (140-440); RBC 4.88 X 10*6/uL (4.10-5.20); RDW 12.1 % (11.5-14.5); WBC 9.13 X 10*3/uL (4.50-10.00)
[2023-11-03 16:02] LABS: ALT 46 U/L (8-44); AST 41 U/L (13-35); Albumin 4.7 g/dL (3.8-4.9); Albumin/Globulin Ratio 1.88 Ratio (1.60-3.17); Alkaline Phosphatase 68 U/L (41-126); BUN/Creat Ratio 11.11 Ratio (12.00-20.00); Calcium 9.9 mg/dL (8.7-10.3); Carbon Dioxide 23.9 mmol/L (21.6-31.8); Chloride 102 mmol/L (96-109); Globulin 2.5 g/dL (1.6-3.3); Glucose 99 mg/dL (70-110); Potassium 4.8 mmol/L (3.5-5.5); Sodium 139 mmol/L (135-145); Total Bilirubin 0.4 mg/dL (0.3-1.2); Total Protein 7.2 g/dL (6.2-8.2)
== END | disposition home or self-care (01) ==
LOC: LABWHC1 08:12
PROVIDERS: ATTEND Nurse Practitioner Family
DX: R94.5 Abnormal results of liver function studies (principal)
CPT/HCPCS: 36415; 80053; 85025; 87340

== ENCOUNTER → 2024-09-05 | Outpatient (CLI) | payer BC ==
[2024-09-05 16:49] LABS: Basophils # (A) 0.09 X 10*3/uL (0.00-0.10); Basophils % (A) 0.8 %; Eosinophils # (A) 0.31 X 10*3/uL (0.04-0.35); Eosinophils % (A) 2.6 %; HCT 45.8 % (37.2-46.3); HGB 14.7 g/dL (12.0-15.0); Lymphocytes # (A) 4.25 X 10*3/uL (0.90-5.00); Lymphocytes % (A) 35.8 %; MCH 29.2 pg (27.0-32.0); MCHC 32.1 g/dL (32.0-37.0); MCV 91.1 FL (80.0-97.0); Mean Platelet Volume 9.5 FL (9.5-12.2); Monocytes % (A) 8.4 %; NRBC Per 100 WBC 0 X 10*3/uL (0.00-0.01); Neutrophils # (A) 6.16 X 10*3/uL (1.80-7.70); Neutrophils % (A) 51.8 %; Platelet Count 332 X 10*3/uL (140-440); RBC 5.03 X 10*6/uL (4.10-5.20); RDW 12.1 % (11.5-14.5); WBC 11.88 X 10*3/uL (4.50-10.00)
[2024-09-05 20:36] LABS: ALT 51 U/L (8-44); AST 34 U/L (13-35); Albumin 4.3 g/dL (3.8-4.9); Albumin/Globulin Ratio 1.48 Ratio (1.60-3.17); Alkaline Phosphatase 69 U/L (41-126); Blood Urea Nitrogen 10.7 mg/dL (9.0-27.0); Calcium 9.7 mg/dL (8.7-10.3); Carbon Dioxide 24.8 mmol/L (21.6-31.8); Chloride 102 mmol/L (96-109); Estradiol 66.2 pg/mL; Globulin 2.9 g/dL (1.6-3.3); Glucose 92 mg/dL (70-110); LDL Cholesterol,Calculated 79.8 mg/dL (0.0-131.0); Potassium 4.9 mmol/L (3.5-5.5); Sodium 140 mmol/L (135-145); Total Bilirubin 0.5 mg/dL (0.3-1.2); Total Protein 7.2 g/dL (6.2-8.2)
[2024-09-05 20:48] LABS: Follicle Stimulating Hormone 8.4 mIU/mL; Luteinizing Hormone 7.5 mIU/mL
== END | disposition home or self-care (01) ==
LOC: LABWHC1 10:02
PROVIDERS: ATTEND Family Medicine
DX: I10 Essential (primary) hypertension (principal); E03.9 Hypothyroidism, unspecified; E04.2 Nontoxic multinodular goiter; E28.2 Polycystic ovarian syndrome; R74.01 Elevation of levels of liver transaminase levels
CPT/HCPCS: 36415; 80053; 80061; 82533; 82670; 83001; 83002; 83036; 84443; 85025

== ENCOUNTER → 2024-09-22 | Outpatient (CLI) | payer BC ==
[2024-09-22 15:31] LABS: BUN/Creat Ratio 13.33 Ratio (12.00-20.00); Calcium 9.8 mg/dL (8.7-10.3); Chloride 102 mmol/L (96-109); Glucose 106 mg/dL (70-110); Sodium 139 mmol/L (135-145)
== END | disposition home or self-care (01) ==
LOC: LABWHC1 09:28
PROVIDERS: ATTEND Nurse Practitioner
DX: I10 Essential (primary) hypertension (principal)
CPT/HCPCS: 36415; 80048

== ENCOUNTER → 2024-10-19 | Outpatient (CLI) | payer BC ==
--- NOTE | 2024-10-23 05:57 | MR ---
EXAMINATION TYPE: MR humerus RT wo con DATE OF EXAM: 10/19/2024 9:40 PM COMPARISON: Outside Right elbow x-ray one day earlier. CLINICAL INDICATION: Female, 34 years old with history of M79.621, Rt upper arm pain, no specific tra jayashree IV Contrast: cc (None if empty) Standard multiplanar, multisequence MRI departmental protocol Multiplanar, multisequence images of the right humerus were acquired without contrast. FINDINGS: Humerus is intact without suspicious focal cortical or medullary lesion. Muscle bulk in the right humerus is maintained. There is no abnormal skin thickening. Suboptimal evaluation near the di stal humerus due to inhomogeneity of the fat saturation pulse. No concerning solid or cystic mass. No abnormal fluid collection is identified. Suboptimal evaluation of the entire shoulder joint. IMPRESSION: Suboptimal study without suspicious finding identified. [facility], , 10/23/2024 5:55 AM
== END | disposition home or self-care (01) ==
LOC: RADMRIMAIN 20:40
PROVIDERS: ATTEND Orthopaedic Surgery
DX: M79.621 Pain in right upper arm (principal)